=== PATIENT | male | born 1945 | race Caucasian/White ===

== ENCOUNTER 2017-02-08 12:42 | Emergency (ER) | payer MEDICARE, MEDICAID ==
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
[2017-02-08 13:53] LABS: ABSOLUTE BASOPHILS # (AUTO) 0.1 10^3/uL (0.0-0.2); ABSOLUTE EOSINOPHILS # (AUTO) 0.1 10^3/uL (0.0-0.6); ABSOLUTE LYMPHOCYTES (AUTO) 2.2 10^3/uL (0.5-4.7); ABSOLUTE MONOCYTES (AUTO) 0.6 10^3/uL (0.1-1.4); ABSOLUTE NEUT (AUTO) 5.7 10^3/uL (1.7-8.2); BASOPHILS % (AUTO) 1.4 % (0-2); EOSINOPHILS % (AUTO) 1.4 % (0-6); HEMATOCRIT 39.8 % (37.9-51.0); HEMOGLOBIN 13.9 g/dL (13.5-17.0); HGB HCT DIFFERENCE 1.9; MEAN CORPUSCULAR HEMOGLOBIN 30.1 pg (27.0-33.4); MEAN CORPUSCULAR HGB CONC 34.9 g/dL (32.0-36.0); MEAN CORPUSCULAR VOLUME 86 fl (80-97); MONOCYTES % (AUTO) 7.4 % (3-13); RED BLOOD COUNT 4.61 10^6/uL (4.35-5.55); RED CELL DISTRIBUTION WIDTH 14.2 % (11.5-14.0); SEGMENTED NEUTROPHILS % (AUTO) 64.8 % (42-78); WHITE BLOOD COUNT 8.7 10^3/uL (4.0-10.5)
[2017-02-08 14:15] LABS: ALANINE AMINOTRANSFERASE 28 U/L (21-72); ALBUMIN 4.7 g/dL (3.5-5.0); ALKALINE PHOSPHATASE 79 U/L (38-126); ANION GAP 15 (5-19); ASPARTATE AMINO TRANSFERASE 26 U/L (17-59); BILIRUBIN,DIRECT 0.2 mg/dL (0.0-0.4); BILIRUBIN,TOTAL 0.8 mg/dL (0.2-1.3); BLOOD UREA NITROGEN 9 mg/dL (7-20); CALCIUM 9.9 mg/dL (8.4-10.2); CARBON DIOXIDE 25 mmol/L (22-30); CHLORIDE 102 mmol/L (98-107); CREATININE RESULT 1.09 mg/dL (0.52-1.25); GLUCOSE 99 mg/dL (75-110); POTASSIUM 4.1 mmol/L (3.6-5.0); SODIUM 142.2 mmol/L (137-145); TOTAL PROTEIN 7.6 g/dL (6.3-8.2)
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
[2017-02-08 16:35] LABS: PROTHROMBIN TIME 13.2 SEC (11.4-15.4)
[2017-02-08 17:35] LABS: AMORPHOUS SEDIMENT,URINE 3+ /HPF; APPEARANCE,URINE TURBID; BILIRUBIN,URINE MODERATE (NEGATIVE); GLUCOSE, URINE NEGATIVE (NEGATIVE); KETONES,URINE NEGATIVE (NEGATIVE); LEUKOCYTE ESTERASE,URINE NEGATIVE (NEGATIVE); NITRITE,URINE NEGATIVE (NEGATIVE); PROTEIN,URINE NEGATIVE (NEGATIVE); UROBILINOGEN,URINE NEGATIVE mg/dL (<2.0)
[2017-02-08 18:35] VITALS: BP 174/87
== END 2017-02-08 18:38 | disposition home or self-care (01) ==
LOC: ER 12:42
DX: K62.5 Hemorrhage of anus and rectum (principal)
CPT/HCPCS: 36415; 80053; 81001; 82272; 85025; 85610; 99283

== ENCOUNTER 2017-04-05 03:55 | Emergency (ER) | payer MEDICARE, MEDICAID ==
[2017-04-05 05:09] LABS: ABSOLUTE EOSINOPHILS # (AUTO) 0.1 10^3/uL (0.0-0.6); ABSOLUTE LYMPHOCYTES (AUTO) 1.4 10^3/uL (0.5-4.7); ABSOLUTE MONOCYTES (AUTO) 0.8 10^3/uL (0.1-1.4); ABSOLUTE NEUT (AUTO) 4.5 10^3/uL (1.7-8.2); BASOPHILS % (AUTO) 0.6 % (0-2); EOSINOPHILS % (AUTO) 1.2 % (0-6); HEMATOCRIT 40.2 % (37.9-51.0); HEMOGLOBIN 13.3 g/dL (13.5-17.0); HGB HCT DIFFERENCE -0.3; LYMPHOCYTES % (AUTO) 20.7 % (13-45); MEAN CORPUSCULAR HEMOGLOBIN 30.1 pg (27.0-33.4); MEAN CORPUSCULAR HGB CONC 33.2 g/dL (32.0-36.0); MEAN CORPUSCULAR VOLUME 91 fl (80-97); MONOCYTES % (AUTO) 11.7 % (3-13); RED BLOOD COUNT 4.44 10^6/uL (4.35-5.55); RED CELL DISTRIBUTION WIDTH 14.5 % (11.5-14.0); SEGMENTED NEUTROPHILS % (AUTO) 65.8 % (42-78); WHITE BLOOD COUNT 6.8 10^3/uL (4.0-10.5)
[2017-04-05 05:20] LABS: ALANINE AMINOTRANSFERASE 37 U/L (21-72); ALBUMIN 4.5 g/dL (3.5-5.0); ALKALINE PHOSPHATASE 94 U/L (38-126); ANION GAP 13 (5-19); ASPARTATE AMINO TRANSFERASE 35 U/L (17-59); BILIRUBIN,DIRECT 0.3 mg/dL (0.0-0.4); BILIRUBIN,TOTAL 0.8 mg/dL (0.2-1.3); BLOOD UREA NITROGEN 19 mg/dL (7-20); CALCIUM 9.8 mg/dL (8.4-10.2); CARBON DIOXIDE 27 mmol/L (22-30); CHLORIDE 98 mmol/L (98-107); CREATININE RESULT 1.41 mg/dL (0.52-1.25); GLUCOSE 115 mg/dL (75-110); MAGNESIUM 2.5 mg/dL (1.6-2.3); SODIUM 137.9 mmol/L (137-145); TOTAL PROTEIN 7.9 g/dL (6.3-8.2)
[2017-04-05 05:29] LABS: ALCOHOL < 10 mg/dL (NONE DETECTED)
[2017-04-05 07:15] LABS: APPEARANCE,URINE CLEAR; BILIRUBIN,URINE NEGATIVE (NEGATIVE); GLUCOSE, URINE NEGATIVE (NEGATIVE); KETONES,URINE NEGATIVE (NEGATIVE); LEUKOCYTE ESTERASE,URINE NEGATIVE (NEGATIVE); NITRITE,URINE NEGATIVE (NEGATIVE); PROTEIN,URINE NEGATIVE (NEGATIVE); URINE SPECIFIC GRAVITY 1.004; UROBILINOGEN,URINE NEGATIVE mg/dL (<2.0)
[2017-04-05 07:32] LABS: URINE BARBITURATES SCREEN NEGATIVE; URINE METHADONE SCREEN NEGATIVE; URINE OPIATES LOW NEGATIVE; URINE PHENCYCLIDINE SCREEN NEGATIVE
--- NOTE | 2017-04-05 08:32 | RADIOLOGY REPORT (SQ) ---
EXAM DESCRIPTION: CT HEAD WITHOUT COMPLETED DATE/TIME: 04/05/2017 8:23 am REASON FOR STUDY: Altered level of consciousness COMPARISON: 09/25/2016 TECHNIQUE: Axial images acquired through the brain without intravenous contrast. Images reviewed wi th bone, brain and subdural windows. Images stored on PACS. All CT scanners at this facility use dose modulation, iterative reconstruction, and/or weight based d osing when appropriate to reduce radiation dose to as low as reasonably achievable (ALARA). [facility]: Dose Right [facility]: CareDose [facility]: Dose Right [facility]: Teradose 4D [facility]: [employer] RADIATION DOSE: 28.01 mGy. LIMITATIONS: None. FINDINGS: VENTRICLES: Normal size and contour. CEREBRUM: No masses. No hemorrhage. No midline shift. Normal guerra/white matter differentiation. N o evidence for acute infarction. CEREBELLUM: No masses. No hemorrhage. No alteration of density. No evidence for acute infarction. EXTRAAXIAL SPACES: No fluid collections. No masses. ORBITS AND GLOBE: No intra- or extraconal masses. Normal contour of globe without masses. CALVARIUM: No fracture. PARANASAL SINUSES: No fluid or mucosal thickening. SOFT TISSUES: No mass or hematoma. OTHER: No other significant finding. IMPRESSION: No acute intracranial event. TECHNICAL DOCUMENTATION: JOB ID: [id number] Quality ID # [id number]: Final reports with documentation of one or more dose reduction techniques (e.g., Au tomated exposure control, adjustment of the mA and/or kV according to patient size, use of iterative reconstruction technique) 2010 [employer]- All Rights Reserved
--- NOTE | 2017-04-05 08:42 | RADIOLOGY REPORT (SQ) ---
EXAM DESCRIPTION: CHEST PA/LAT COMPLETED DATE/TIME: 04/05/2017 8:33 am REASON FOR STUDY: ams COMPARISON: 09/25/2016 EXAM PARAMETERS: NUMBER OF VIEWS: two views TECHNIQUE: Digital Frontal and Lateral radiographic views of the chest acquired. RADIATION DOSE: NA LIMITATIONS: none FINDINGS: LUNGS AND PLEURA: No opacities, masses or pneumothorax. No pleural effusion. MEDIASTINUM AND HILAR STRUCTURES: No masses or contour abnormalities. HEART AND VASCULAR STRUCTURES: Heart normal size. No evidence for failure. BONES: Stable in appearance with multiple left-sided healed rib fractures. HARDWARE: None in the chest. OTHER: No other significant finding. IMPRESSION: NO SIGNIFICANT RADIOGRAPHIC FINDING IN THE CHEST. TECHNICAL DOCUMENTATION: JOB ID: [id number] [employer]- All Rights Reserved
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
[2017-04-05 12:21] VITALS: BP 167/97
--- NOTE | 2017-04-05 14:31 | EKG REPORT ---
SEVERITY:- NORMAL ECG - SINUS RHYTHM : Confirmed by: Meagan Avendaño 05-Apr-2017 14:30:25
== END 2017-04-05 12:20 | disposition home or self-care (01) ==
LOC: ER 03:55
DX: R41.82 Altered mental status, unspecified (principal); I10 Essential (primary) hypertension; Z79.899 Other long term (current) drug therapy; Z79.891 Long term (current) use of opiate analgesic; Z87.891 Personal history of nicotine dependence; Z85.46 Personal history of malignant neoplasm of prostate
CPT/HCPCS: 36415; 70450; 71020; 80053; 80307; 81001; 83735; 85025; 93005; 93010; 99285

== ENCOUNTER → 2017-05-21 | Outpatient (CLI) | payer MEDICARE, MEDICAID | LOC: OD 13:47 | PROVIDERS: ATTEND Radiology Radiation Oncology | DX: C61 Malignant neoplasm of prostate (principal) | CPT/HCPCS: 36415; 84153 ==

== ENCOUNTER → 2018-02-23 | Outpatient (CLI) | payer MEDICARE, MEDICAID | LOC: OD 13:09 | PROVIDERS: ATTEND Radiology Radiation Oncology | DX: C61 Malignant neoplasm of prostate (principal); R97.20 Elevated prostate specific antigen [PSA] | CPT/HCPCS: 36415; 84153 ==

== ENCOUNTER → 2018-02-23 | Outpatient (CLI) | payer MEDICARE, MEDICAID ==
--- NOTE | 2018-02-23 13:59 | RADIOLOGY REPORT (SQ) ---
EXAM DESCRIPTION: NM WHOLE BODY BONE SCAN COMPLETED DATE/TIME: 02/23/2018 12:23 pm REASON FOR STUDY: PROSTATE CANCER, BONE PAIN C61 MALIGNANT NEOPLASM OF PROSTATE M85.80 OTH DISRD O F BONE DENSITY AND STRUCTURE, UNSPECIFIED COMPARISON: Prior bone scan 04/22/2011, 06/09/2012, 08/15/2014 RADIONUCLIDE AND DOSE: 21.8 millicuries Tc99m HDP. The route of agent administration: Intravenous. ADDITIONAL DRUGS AND DOSES: None. TECHNIQUE: Routine delayed images at 3 hours post radionuclide injection acquired of the bony skelet on including anterior and posterior whole-body projections and additional focused images as needed. LIMITATIONS: None. FINDINGS: BONES: Increased uptake over the thoracic and lumbar spine, bony pelvis, ribs, sternum, cl avicles, calvarium worrisome for metastatic disease. Heavy burden of disease at L1. Spotty increased uptake at the shoulders, hips knees and ankles likely from osteoarthritis. KIDNEYS: Symmetric excretion without obstruction. OTHER: No other significant finding. IMPRESSION: Multiple skeletal lesions worrisome for metastatic disease COMMENT: Quality measure 147: Current bone scan is compared with any available plain radiographs, p rior bone scans, and CT/MRI. TECHNICAL DOCUMENTATION: JOB ID: [id number] [employer]- All Rights Reserved Reading location - IP/workstation name: [facility]
== END ==
LOC: RAD 08:12
PROVIDERS: ATTEND Radiology Radiation Oncology
DX: C61 Malignant neoplasm of prostate (principal); M85.80 Other specified disorders of bone density and structure, unspecified site
CPT/HCPCS: 78306; A9561; Q9969

== ENCOUNTER → 2018-03-03 | Outpatient (CLI) | payer MEDICARE, MEDICAID ==
--- NOTE | 2018-03-03 15:35 | RADIOLOGY REPORT (SQ) ---
EXAM DESCRIPTION: CT PELVIS WITHOUT COMPLETED DATE/TIME: 03/03/2018 3:08 pm REASON FOR STUDY: C79.51 SECONDARY MALIGNANT NEOPLASM OF BONE C79.51 SECONDARY MALIGNANT NEOPLASM O F BONE COMPARISON: Whole-body bone scan 02/23/2018 CT abdomen pelvis 01/09/2016 TECHNIQUE: CT scan of the pelvis performed without intravenous or oral contrast. Images reviewed wi th soft tissue and bone windows. Reconstructed coronal and sagittal MPR images reviewed. All images stored on PACS. All CT scanners at this facility use dose modulation, iterative reconstruction, and/or weight based d osing when appropriate to reduce radiation dose to as low as reasonably achievable (ALARA). [facility]: Dose Right [facility]: CareDose [facility]: Dose Right [facility]: Teradose 4D [facility]: [employer] RADIATION DOSE: CT Rad equipment meets quality standard of care and radiation dose reduction techniq ues were employed. CTDIvol: 8.5 mGy. DLP: 281 mGy-cm. mGy. LIMITATIONS: None. FINDINGS: Since the CT exam on 01/09/2016, patient has developed widespread osseous metastatic lesion s throughout the visualized lower lumbar spine and bony pelvis. No definite proximal femur bony meta static lesions. No pelvic fracture. Hip joints are unremarkable. SI joints are unremarkable. No lower lumbar compression deformity. Soft tissue windows demonstrate no para-aortic or pelvic for inguinal adenopathy. Patient is post prostatectomy. Pelvic bowel loops are unremarkable. No free fluid. IMPRESSION: Diffuse bony metastatic disease throughout the pelvis without pathologic fracture. TECHNICAL DOCUMENTATION: JOB ID: [id number] Quality ID # [id number]: Final reports with documentation of one or more dose reduction techniques (e.g., Au tomated exposure control, adjustment of the mA and/or kV according to patient size, use of iterative reconstruction technique) 2010 [employer]- All Rights Reserved Reading location - IP/workstation name: [email or web address]
== END ==
LOC: RAD 14:54
PROVIDERS: ATTEND Radiology Radiation Oncology
DX: C79.51 Secondary malignant neoplasm of bone (principal); C61 Malignant neoplasm of prostate
CPT/HCPCS: 72192; 82565

== ENCOUNTER 2018-05-19 14:44 | Emergency (ER) | payer MEDICARE, MEDICAID ==
[2018-05-19] MEDS ORDERED: NORMAL SALINE 1000 ML 1,000 ML IV ONE (15:12)
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
[2018-05-19 15:47] LABS: ABSOLUTE EOSINOPHILS # (AUTO) 0.1 10^3/uL (0.0-0.6); ABSOLUTE LYMPHOCYTES (AUTO) 2.3 10^3/uL (0.5-4.7); ABSOLUTE MONOCYTES (AUTO) 0.6 10^3/uL (0.1-1.4); ABSOLUTE NEUT (AUTO) 5.5 10^3/uL (1.7-8.2); BASOPHILS % (AUTO) 0.5 % (0-2); EOSINOPHILS % (AUTO) 1.7 % (0-6); HEMATOCRIT 37.1 % (37.9-51.0); HEMOGLOBIN 12.7 g/dL (13.5-17.0); LYMPHOCYTES % (AUTO) 27.2 % (13-45); MEAN CORPUSCULAR HEMOGLOBIN 30.8 pg (27.0-33.4); MEAN CORPUSCULAR HGB CONC 34.3 g/dL (32.0-36.0); MEAN CORPUSCULAR VOLUME 90 fl (80-97); MONOCYTES % (AUTO) 6.5 % (3-13); PLATELET COUNT 254 10^3/uL (150-450); RED BLOOD COUNT 4.13 10^6/uL (4.35-5.55); RED CELL DISTRIBUTION WIDTH 14.3 % (11.5-14.0); SEGMENTED NEUTROPHILS % (AUTO) 64.1 % (42-78); TOTAL CELLS COUNTED % (AUTO) 100 %; WHITE BLOOD COUNT 8.6 10^3/uL (4.0-10.5)
[2018-05-19 16:07] LABS: ALANINE AMINOTRANSFERASE 31 U/L (21-72); ALBUMIN 4.3 g/dL (3.5-5.0); ALKALINE PHOSPHATASE 281 U/L (38-126); ANION GAP 13 (5-19); ASPARTATE AMINO TRANSFERASE 37 U/L (17-59); BILIRUBIN,DIRECT 0.3 mg/dL (0.0-0.4); BILIRUBIN,TOTAL 0.6 mg/dL (0.2-1.3); BLOOD UREA NITROGEN 16 mg/dL (7-20); CALCIUM 9.4 mg/dL (8.4-10.2); CARBON DIOXIDE 24 mmol/L (22-30); CHLORIDE 103 mmol/L (98-107); GLUCOSE 101 mg/dL (75-110); LIPASE 21.8 U/L (23-300); POTASSIUM 4.7 mmol/L (3.6-5.0); TOTAL PROTEIN 7.2 g/dL (6.3-8.2)
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
--- NOTE | 2018-05-19 17:32 | RADIOLOGY REPORT (SQ) ---
EXAM DESCRIPTION: CT ABD/PELVIS WITH IV ONLY COMPLETED DATE/TIME: 05/19/2018 4:46 pm REASON FOR STUDY: diffuse abd pain, hx cancer COMPARISON: Pelvic CT scan dated 03/03/2018 TECHNIQUE: CT scan of the abdomen and pelvis performed using helical scanning technique with dynamic intravenous contrast injection. No oral contrast. Images reviewed with lung, soft tissue, and bone windows. Reconstructed coronal and sagittal MPR images reviewed. Delayed images for evaluation of the urinary system also acquired. All images stored on PACS. All CT scanners at this facility use dose modulation, iterative reconstruction, and/or weight based d osing when appropriate to reduce radiation dose to as low as reasonably achievable (ALARA). [facility]: Dose Right [facility]: CareDose [facility]: Dose Right [facility]: Teradose 4D [facility]: [employer] CONTRAST TYPE AND DOSE: contrast/concentration: Isovue 300.00 mg/ml; Total Contrast Delivered: 98.0 ml; Total Saline Delivered: 72.0 ml RENAL FUNCTION: Creatinine 1.88 RADIATION DOSE: CT Rad equipment meets quality standard of care and radiation dose reduction techniq ues were employed. CTDIvol: 11.0 - 15.8 mGy. DLP: 1498 mGy-cm.. LIMITATIONS: None. FINDINGS: LOWER CHEST: Ill-defined bibasilar densities are identified most consistent with atelectat ic changes. Small nodular densities are identified in the retrocrural region suspicious for adenopat hy. LIVER: Normal size. No masses. No dilated ducts. SPLEEN: Normal size. No focal lesions. PANCREAS: No masses. No significant calcifications. No adjacent inflammation or peripancreatic fluid collections. Pancreatic duct not dilated. GALLBLADDER: No identified stones by CT criteria. No inflammatory changes to suggest cholecystitis. ADRENAL GLANDS: No significant masses or asymmetry. RIGHT KIDNEY AND URETER: No solid masses. No significant calcifications. No hydronephrosis or hyd roureter. LEFT KIDNEY AND URETER: No solid masses. No significant calcifications. No hydronephrosis or hydr oureter. AORTA AND VESSELS: No aneurysm. No dissection. Renal arteries, SMA, celiac without stenosis. RETROPERITONEUM: No retroperitoneal adenopathy, hemorrhage or masses. BOWEL AND PERITONEAL CAVITY: No masses or inflammatory changes. No free fluid or peritoneal masses. APPENDIX: Normal. PELVIS: No mass. No free fluid. Normal bladder. Patient is status post prostatectomy. ABDOMINAL WALL: No masses. No hernias. BONES: Diffuse skeletal sclerotic metastatic disease is identified. OTHER: No other significant finding. IMPRESSION: Diffuse skeletal sclerotic metastatic disease is identified. Nodular densities are iden tified in the retrocrural region suspicious for adenopathy. Status post prostatectomy. Other findin gs as noted above. TECHNICAL DOCUMENTATION: JOB ID: [id number] Quality ID # [id number]: Final reports with documentation of one or more dose reduction techniques (e.g., Au tomated exposure control, adjustment of the mA and/or kV according to patient size, use of iterative reconstruction technique) 2010 [employer]- All Rights Reserved Reading location - IP/workstation name: [email or web address]
[2018-05-19 17:54] VITALS: BP 135/71
== END 2018-05-19 17:54 | disposition home or self-care (01) ==
LOC: ER 14:44
DX: I95.9 Hypotension, unspecified (principal); N17.9 Acute kidney failure, unspecified; M15.9 Polyosteoarthritis, unspecified; C61 Malignant neoplasm of prostate; C79.51 Secondary malignant neoplasm of bone; Z79.899 Other long term (current) drug therapy; I10 Essential (primary) hypertension; R10.9 Unspecified abdominal pain
CPT/HCPCS: 99285; 96360; 96361; 36415; 87040; 83690; 85025; 80053; 83605; 74177; J7030

== ENCOUNTER → 2018-11-02 | Outpatient (CLI) | payer MEDICARE, MEDICAID ==
--- NOTE | 2018-11-02 09:19 | RADIOLOGY REPORT (SQ) ---
EXAM DESCRIPTION: CT CHEST WITH; CT ABD/PELVIS WITH IV ONLY COMPLETED DATE/TIME: 11/02/2018 8:57 am REASON FOR STUDY: PROSTATE CA C61 MALIGNANT NEOPLASM OF PROSTATE COMPARISON: Prior abdominopelvic study 05/19/2018. CONTRAST TYPE AND DOSE: contrast/concentration: Isovue 350.00 mg/ml; Total Contrast Delivered: 100.0 ml; Total Saline Delivered: 72.0 ml RENAL FUNCTION: GFR > 60. TECHNIQUE: CT scan of the chest performed using helical scanning technique with dynamic intravenous contrast injection. Images reviewed with lung, soft tissue and bone windows. Reconstructed coronal a nd sagittal MPR images reviewed. All images stored on PACS. CT scan of the abdomen and pelvis performed with intravenous and with oral contrastusing helical scan rodolfo technique with dynamic intravenous contrast injection. Images reviewed with lung, soft tissue a nd bone windows. Reconstructed coronal and sagittal MPR images reviewed. Delayed images for evaluat ion of the urinary system also acquired and evaluated. All images stored on PACS. All CT scanners at this facility use dose modulation, iterative reconstruction, and/or weight based d osing when appropriate to reduce radiation dose to as low as reasonably achievable (ALARA). [facility]: Dose Right [facility]: CareDose [facility]: Dose Right [facility]: Teradose 4D [facility]: [employer] RADIATION DOSE: CT Rad equipment meets quality standard of care and radiation dose reduction techniq ues were employed. CTDIvol: 8.0 - 8.8 mGy. DLP: 1259 mGy-cm. . LIMITATIONS: None. FINDINGS: CHEST: LUNGS AND PLEURA: Mild nodular apical pleural scar. Right upper lobe subpleural nodule, 4 mm. Right posterior subpleural lower lobe nodule just at 4 mm. HILAR AND MEDIASTINAL STRUCTURES: Shotty nodes. Includes lower mediastinal paraesophageal subcentime ter nodes. HEART AND VASCULAR STRUCTURES: No pericardial effusion, aortic aneurysm or dissection. Moderate parish nary calcification. No pulmonary embolus. HARDWARE: None. THYROID AND OTHER SOFT TISSUES: No masses. No adenopathy. BONES: Widespread sclerotic osseous metastatic disease. OTHER: No other significant finding. ABDOMEN AND PELVIS: LIVER: Normal size. No masses. No dilated ducts. SPLEEN: Normal size. No focal lesions. PANCREAS: Atrophy. Otherwise unremarkable. GALLBLADDER: Mildly distended. No stones kendall dilatation. ADRENAL GLANDS: No significant masses or asymmetry. RIGHT KIDNEY AND URETER: No solid masses. No significant calcification. No hydronephrosis or hydroure ter. LEFT KIDNEY AND URETER: No solid masses. No significant calcification. No hydronephrosis or hydrouret er. AORTA AND VESSELS: No aneurysm. No dissection. Renal arteries, SMA, celiac without stenosis. RETROPERITONEUM: No retroperitoneal adenopathy, hemorrhage or masses. BOWEL AND PERITONEAL CAVITY: No masses or inflammatory changes. No free fluid or peritoneal masses. APPENDIX: Normal. ABDOMINAL WALL: No masses. No hernias. PELVIS: No pelvic mass or adenopathy detected. Bladder normal. BONES: Widespread sclerotic osseous metastatic disease. OTHER: No other significant finding. IMPRESSION: 1. Widespread osseous metastatic disease diffusely. 2. Several tiny 4 mm or less pulmo nary nodules. FLEISCHNER CRITERIA FOR FOLLOW-UP OF PULMONARY NODULES Incidentally detected new nodules in persons 35 or older. HIGH RISK: History of smoking or other known risk factors. <6mm multiple solid nodules: LOW RISK: no routine followup. HIGH RISK: optional CT [address] OF THE ABDOMEN AND PELVIS WITH ORAL AND INTRAVENOUS CONTRAST. TECHNICAL DOCUMENTATION: JOB ID: [id number] Quality ID # 436: Final reports with documentation of one or more dose reduction techniques (e.g., Au tomated exposure control, adjustment of the mA and/or kV according to patient size, use of iterative reconstruction technique) 2010 [employer]- All Rights Reserved Reading location - IP/workstation name: [email or web address]
--- NOTE | 2018-11-02 13:26 | RADIOLOGY REPORT (SQ) ---
EXAM DESCRIPTION: NM WHOLE BODY BONE SCAN COMPLETED DATE/TIME: 11/02/2018 12:03 pm REASON FOR STUDY: PROSTATE CA C61 MALIGNANT NEOPLASM OF PROSTATE COMPARISON: 02/23/2018 RADIONUCLIDE AND DOSE: 21.2 millicuries Tc99m HDP. The route of agent administration: Intravenous. ADDITIONAL DRUGS AND DOSES: None. TECHNIQUE: Routine delayed images at 3 hour post radionuclide injection acquired of the bony skeleto n including anterior and posterior whole-body projections and additional focused images as needed. LIMITATIONS: None. FINDINGS: BONES: Multiple areas of increased uptake axial skeleton, ribs and calvarium. No new area s of increased uptake. KIDNEYS: Symmetric excretion without obstruction. OTHER: No other significant finding. IMPRESSION: Stable bone metastasis. COMMENT: Quality measure 147: Current bone scan is compared with any available plain radiographs, p rior bone scans, and CT/MRI. TECHNICAL DOCUMENTATION: JOB ID: [id number] [employer]- All Rights Reserved Reading location - IP/workstation name: [email or web address]
== END ==
LOC: RAD 08:20
PROVIDERS: ATTEND Internal Medicine
DX: C61 Malignant neoplasm of prostate (principal)
CPT/HCPCS: 82565; 78306; 71260; 74177; A9561; Q9969

== ENCOUNTER → 2019-06-27 | Outpatient (CLI) | payer MEDICARE, MEDICAID ==
--- NOTE | 2019-06-27 11:33 | RADIOLOGY REPORT (SQ) ---
EXAM DESCRIPTION: CT CHEST WITH; CT ABD/PELVIS WITH IV ONLY COMPLETED DATE/TIME: 06/27/2019 9:51 am REASON FOR STUDY: C61 MALIGNANT NEOPLASM OF PROSTATE C61 MALIGNANT NEOPLASM OF PROSTATE CONTRAST TYPE AND DOSE: contrast/concentration: Isovue 350.00 mg/ml; Total Contrast Delivered: 100.0 ml; Total Saline Delivered: 65.0 ml RENAL FUNCTION: Creatinine 1.1 COMPARISON: 11/02/2018 TECHNIQUE: CT scan of the chest performed using helical scanning technique with dynamic intravenous contrast injection. Images reviewed with lung, soft tissue and bone windows. Reconstructed coronal a nd sagittal MPR images reviewed. All images stored on PACS. All CT scanners at this facility use dose modulation, iterative reconstruction, and/or weight based d osing when appropriate to reduce radiation dose to as low as reasonably achievable (ALARA). [facility]: Dose Right [facility]: CareDose [facility]: Dose Right [facility]: Teradose 4D [facility]: [employer] RADIATION DOSE: CT Rad equipment meets quality standard of care and radiation dose reduction techniq ues were employed. CTDIvol: 9.3 - 10.4 mGy. DLP: 1595 mGy-cm. . LIMITATIONS: None. FINDINGS: AXILLAE: Stable 1.3 cm right axillary lymph node. Stable 9.1 mm left axillary lymph node. CHEST WALL: No masses. No subcutaneous air. LUNGS: Again noted is a small right upper lobe pulmonary nodule adjacent to the fissure measuring austin roximately 4 mm. There is a 2nd approximately 4 mm nodule in the right lower lobe which is subpleura l in location. There is a calcified granuloma in the left upper lobe. PLEURA: Pleural thickening bilaterally. THYROID: No masses or significant asymmetry. HILAR AND MEDIASTINAL STRUCTURES: No identified masses or abnormal nodes. AORTA AND GREAT VESSELS: No aneurysm. No dissection. PULMONARY ARTERIES: No identified pulmonary emboli. Study not optimized for the pulmonary arteries. HEART: No pericardial effusion. HARDWARE AND LIFELINES: None. BONES: Widespread bony metastases are again noted. OTHER: No other significant finding. IMPRESSION: 1. Stable 4 mm nodules 1 in the right upper lobe 1 in the right lung base. 2. Widespread bony metastasis. COMPARISON: None. RADIATION DOSE: CT Rad equipment meets quality standard of care and radiation dose reduction techniq ues were employed. CTDIvol: 9.3 - 10.4 mGy. DLP: 1595 mGy-cm. mGy. TECHNIQUE: CT scan of the abdomen and pelvis performed with intravenous and oral contrast using kareem nicolas scanning technique with dynamic intravenous contrast injection. Images reviewed with lung, soft tissue and bone windows. Reconstructed coronal and sagittal MPR images reviewed. Delayed images for evaluation of the urinary system also acquired and evaluated. All images stored on PACS. All CT scanners at this facility use dose modulation, iterative reconstruction, and/or weight based d osing when appropriate to reduce radiation dose to as low as reasonably achievable (ALARA). [facility]: Dose Right [facility]: [employer] [facility]: Dose Right [facility]: Teradose 4D [facility]: [employer] FINDINGS: LIVER: Normal size. No masses. No dilated ducts. SPLEEN: Normal size. No focal lesions. PANCREAS: No masses. No significant calcifications. No adjacent inflammation or peripancreatic flui d collections. Pancreatic duct not dilated. GALLBLADDER: No identified stones by CT criteria. No inflammatory changes to suggest cholecystitis. ADRENAL GLANDS: No significant masses or asymmetry. RIGHT KIDNEY AND URETER: No solid masses. No significant calcifications. No hydronephrosis or hyd roureter. LEFT KIDNEY AND URETER: No solid masses. No significant calcifications. No hydronephrosis or hydr oureter. AORTA AND VESSELS: No aneurysm or dissection. There is calcified plaque at the origins of both renal arteries. SMA and celiac axis are widely patent. No significant renal artery stenosis despite the calcified plaque. RETROPERITONEUM: No pathologic retroperitoneal adenopathy. LARGE AND SMALL BOWEL: No dilatation. No masses. No wall thickening. APPENDIX: Normal. ABDOMINAL WALL: No hernia or masses. PERITONEAL CAVITY: No free air. No free fluid. No peritoneal implants or masses. PELVIS: No mass or free fluid. Normal bladder. BONES: Bony metastases are again noted. OTHER: No other significant finding. IMPRESSION: Widespread bony metastasis. No other significant findings in the abdomen or pelvis. TECHNICAL DOCUMENTATION: JOB ID: [id number] Quality ID # 436: Final reports with documentation of one or more dose reduction techniques (e.g., Au tomated exposure control, adjustment of the mA and/or kV according to patient size, use of iterative reconstruction technique) 2010 [email or web address] All Rights Reserved Reading location - IP/workstation name: [email or web address]
--- NOTE | 2019-06-27 13:02 | RADIOLOGY REPORT (SQ) ---
EXAM DESCRIPTION: NM WHOLE BODY BONE SCAN COMPLETED DATE/TIME: 06/27/2019 12:44 pm REASON FOR STUDY: C61 MALIGNANT NEOPLASM OF PROSTATE C61 MALIGNANT NEOPLASM OF PROSTATE COMPARISON: 11/02/2018 RADIONUCLIDE AND DOSE: 20 millicuries Tc99m HDP. The route of agent administration: Intravenous. ADDITIONAL DRUGS AND DOSES: None. TECHNIQUE: Routine delayed images at 3 hours post radionuclide injection acquired of the bony skelet on including anterior and posterior whole-body projections and additional focused images as needed. LIMITATIONS: None. FINDINGS: BONES: Extensive metastatic disease is seen in the spine, ribs, sacrum, and right coracoid process. The findings represent increase in metastatic disease. KIDNEYS: Symmetric excretion without obstruction. OTHER: No other significant finding. IMPRESSION: Metastatic disease to bone has increased since the prior study. COMMENT: Quality measure 147: Current bone scan is compared with any available plain radiographs, p rior bone scans, and CT/MRI. TECHNICAL DOCUMENTATION: JOB ID: [id number] [employer]- All Rights Reserved Reading location - IP/workstation name: [email or web address]
== END ==
LOC: RAD 08:49
PROVIDERS: ATTEND Internal Medicine
DX: C61 Malignant neoplasm of prostate (principal); C79.51 Secondary malignant neoplasm of bone; R91.8 Other nonspecific abnormal finding of lung field
CPT/HCPCS: 82565; 78306; 71260; 74177; A9561; Q9969

== ENCOUNTER 2019-08-02 21:09 | Inpatient (IN) | payer MEDICARE, MEDICAID ==
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
[2019-08-02 22:17] LABS: ABSOLUTE BASOPHILS # (AUTO) 0.1 10^3/uL (0.0-0.2); ABSOLUTE LYMPHOCYTES (AUTO) 1.5 10^3/uL (0.5-4.7); ABSOLUTE MONOCYTES (AUTO) 0.8 10^3/uL (0.1-1.4); ABSOLUTE NEUT (AUTO) 9.4 10^3/uL (1.7-8.2); BASOPHILS % (AUTO) 0.5 % (0-2); EOSINOPHILS % (AUTO) 0.2 % (0-6); HEMOGLOBIN 12.5 g/dL (13.5-17.0); LYMPHOCYTES % (AUTO) 12.8 % (13-45); MEAN CORPUSCULAR HEMOGLOBIN 30.4 pg (27.0-33.4); MEAN CORPUSCULAR HGB CONC 35.6 g/dL (32.0-36.0); MEAN CORPUSCULAR VOLUME 86 fl (80-97); MONOCYTES % (AUTO) 6.6 % (3-13); PLATELET COUNT 290 10^3/uL (150-450); RED BLOOD COUNT 4.09 10^6/uL (4.35-5.55); RED CELL DISTRIBUTION WIDTH 13.5 % (11.5-14.0); SEGMENTED NEUTROPHILS % (AUTO) 79.9 % (42-78); TOTAL CELLS COUNTED % (AUTO) 100 %; WHITE BLOOD COUNT 11.8 10^3/uL (4.0-10.5)
[2019-08-02 22:26] LABS: INTERNATIONAL RATION (INR) 1.12; PROTHROMBIN TIME 14.5 SEC (11.4-15.4)
[2019-08-02 22:31] LABS: ALBUMIN 4.3 g/dL (3.5-5.0); ALKALINE PHOSPHATASE 139 U/L (38-126); ANION GAP 16 (5-19); ASPARTATE AMINO TRANSFERASE 29 U/L (17-59); BILIRUBIN,DIRECT 0.2 mg/dL (0.0-0.4); BILIRUBIN,TOTAL 0.8 mg/dL (0.2-1.3); BLOOD UREA NITROGEN 16 mg/dL (7-20); CALCIUM 9.1 mg/dL (8.4-10.2); CARBON DIOXIDE 22 mmol/L (22-30); CHLORIDE 84 mmol/L (98-107); GLUCOSE 135 mg/dL (75-110); POTASSIUM 3.4 mmol/L (3.6-5.0); TOTAL PROTEIN 7.1 g/dL (6.3-8.2)
[2019-08-02 22:49] LABS: VENOUS BLOOD BASE EXCESS 0.7 mmol/L; VENOUS BLOOD HCO3 26.9 mmol/L (20-32); VENOUS BLOOD PCO2 49.4 mmHg (35-63); VENOUS BLOOD PH 7.35 (7.30-7.42)
--- NOTE | 2019-08-03 00:21 | RADIOLOGY REPORT (SQ) ---
EXAM DESCRIPTION: CT HEAD WITHOUT IV CONTRAST COMPLETED DATE/TME: 08/02/2019 22:36 CLINICAL HISTORY: Fall/pain COMPARISON: 04/05/2017 TECHNIQUE: Axial CT of the head obtained from the skull apex to the skull base without contrast. Motion artifact. FINDINGS: No acute intracranial hemorrhage identified. No mass effect, shift of the midline, abnormal extra-axial fluid collection or CT evidence of acute ischemic change identified. The ventricular system and sulcal spaces are age appropriate. Scattered areas of hypodensity throughout the supratentorial white matter are nonspecific and may be related to chronic small vessel ischemic change. Enlargement of the pituitary gland measuring 1.4 x 1.8 x 5.3 cm The visualized paranasal sinuses and the mastoids are clear. No skull fracture identified. Visualized orbits and globes are unremarkable. Atherosclerotic calcification of the intracranial internal carotid arteries. DLP: 2127 mGy-cm IMPRESSION: 1. No acute intracranial abnormality by CT criteria. 2. Enlargement of the pituitary gland. If not previously performed, MRI of the brain with pituitary protocol would be recommended. This exam was performed according to our departmental dose-optimization program, which includes automated exposure control, adjustment of the mA and/or kV according to patient size and/or use of iterative reconstruction technique.
[2019-08-03] MEDS ORDERED: MORPHINE SULFATE 10 MG/ML INJ IV ONE ×2 (01:01→02:18)
[2019-08-03] MEDS ORDERED: NORMAL SALINE 1000 ML 1,000 ML IV ONE (02:49)
[2019-08-03 05:09] LABS: ANION GAP 13 (5-19); BLOOD UREA NITROGEN 14 mg/dL (7-20); CALCIUM 9.4 mg/dL (8.4-10.2); CARBON DIOXIDE 24 mmol/L (22-30); CHLORIDE 87 mmol/L (98-107); GLUCOSE 106 mg/dL (75-110); POTASSIUM 3.5 mmol/L (3.6-5.0)
--- NOTE | 2019-08-03 09:37 | ER Document Report ---
Doctor's Note Notes: 08/03/19 09:36 Patient signed out to me by Dr. Jenkins, who presented with questionable seizure, hyponatremia. Extensive work-up undertaken is unremarkable with the exception of a small sella turcica mass. Originally patient and placed in for transfer for further evaluation. However, spoke with the patient's primary care doctor who feels he can be adequately managed here in [place] transfer later if needed. Patient is alert but confused over his baseline. Will be admitted, sodium has improved from 121 123, continues to have gentle judicious sodium replacement.
[2019-08-03] MEDS ORDERED: NORMAL SALINE 1000 ML 1,000 ML IV PRN (09:58)
[2019-08-03 11:19] LABS: INTERNATIONAL RATION (INR) 1.09; PROTHROMBIN TIME 14.1 SEC (11.4-15.4)
[2019-08-03 11:20] LABS: PARTIAL THROMBOPLASTIN TIME 30.3 SEC (23.5-35.8)
[2019-08-03 11:45] LABS: ANION GAP 11 (5-19); BLOOD UREA NITROGEN 11 mg/dL (7-20); CALCIUM 9.3 mg/dL (8.4-10.2); CARBON DIOXIDE 25 mmol/L (22-30); CHLORIDE 88 mmol/L (98-107); CREATINE KINASE 752 U/L (55-170); GLUCOSE 114 mg/dL (75-110); POTASSIUM 3.2 mmol/L (3.6-5.0)
--- NOTE | 2019-08-03 11:51 | RADIOLOGY REPORT (SQ) ---
EXAM DESCRIPTION: CHEST SINGLE VIEW COMPLETED DATE/TIME: 08/03/2019 10:32 am REASON FOR STUDY: altered mental status COMPARISON: CT chest 06/27/2019, 11/02/2018 Two-view chest 04/05/2017 EXAM PARAMETERS: NUMBER OF VIEWS: One view. TECHNIQUE: Single frontal radiographic view of the chest acquired. RADIATION DOSE: NA LIMITATIONS: None. FINDINGS: LUNGS AND PLEURA: Minimal right basilar airspace disease just above the hemidiaphragm. Le ft lung clear. No pleural effusions. No pneumothorax. MEDIASTINUM AND HILAR STRUCTURES: No masses. Contour normal. HEART AND VASCULAR STRUCTURES: Heart normal in size. Normal vasculature. BONES: Old healed left posterior rib fractures HARDWARE: None in the chest. OTHER: No other significant finding. IMPRESSION: Minimal right basilar atelectasis TECHNICAL DOCUMENTATION: JOB ID: [id number] [employer]- All Rights Reserved Reading location - IP/workstation name: [email or web address]
[2019-08-03 11:53] LABS: CREATINE KINASE MB 4.67 ng/mL (<4.55); TROPONIN I 0.013 ng/mL
[2019-08-03 11:58] LABS: FREE T4 (FREE THYROXINE) 1.17 ng/dL (0.78-2.19)
[2019-08-03 12:11] LABS: THYROID STIMULATING HORMONE 0.63 uIU/mL (0.47-4.68)
[2019-08-03 12:14] LABS: ARTERIAL BLOOD BASE EXCESS -1.4 mmol/L; ARTERIAL BLOOD H2CO3 1.04 mmol/L (1.05-1.35); ARTERIAL BLOOD HCO3 22.3 mmol/L (20-24); ARTERIAL BLOOD O2 SATURATION 97.3 % (94-98); ARTERIAL BLOOD PCO2 34.4 mmHg (35-45); ARTERIAL BLOOD PH 7.43 (7.35-7.45); ARTERIAL BLOOD PO2 91.5 mmHg (80-100); ARTERIAL BLOOD TOTAL CO2 23.4 mmol/L (23-27)
[2019-08-03 12:15] LABS: ARTERIAL BLOOD FIO2 2L
[2019-08-03] MEDS ORDERED: ONDANSETRON HCL INJ/PF 4 MG/2 ML SDV IV PRN (13:13)
[2019-08-03] MEDS: OXYCODONE HCL IR 5 MG TABLET PO PRN ×2 (13:52→19:58)
[2019-08-03] MEDS: HEPARIN SOD (PORCINE) 5,000 UNIT/ML 1 ML VIAL SUBCUT SCH ×3 (13:56→22:54)
[2019-08-03 18:06] LABS: CREATINE KINASE MB 3.91 ng/mL (<4.55); TROPONIN I 0.014 ng/mL
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
--- NOTE | 2019-08-03 21:50 | EKG REPORT ---
SEVERITY:- BORDERLINE ECG - SINUS RHYTHM BORDERLINE T WAVE ABNORMALITIES : Confirmed by: Armida Jacobson MD 03-Aug-2019 21:49:10
--- NOTE | 2019-08-03 21:50 | EKG REPORT ---
SEVERITY:- BORDERLINE ECG - SINUS RHYTHM BORDERLINE T WAVE ABNORMALITIES : Confirmed by: Armida Jacobson MD 03-Aug-2019 21:49:04
--- NOTE | 2019-08-03 22:42 | RADIOLOGY REPORT (SQ) ---
EXAM DESCRIPTION: MR BRAIN WITHOUT THEN WITH IV CONTRAST COMPLETED DATE/TME: 08/03/2019 00:00 CLINICAL HISTORY: 74 years, Male, altered mental status ,stage 4 prostate CA,Ab CT COMPARISON: CT 08/03/2019, MRI 02/01/2015 TECHNIQUE: [id number] Images stored on PACS. LIMITATIONS: None. FINDINGS: The globes are intact. Minimal polyp of the right maxillary sinus. Trace of fluid in the mastoid air cells. Normal flow void in visualized intracranial vessels. The visualized cranial nerve complex these are unremarkable. There is no intra or extra-axial hemorrhage. Diffusion-weighted images show no evidence for acute infarct. Mild age-appropriate atrophy. Multiple foci of increased FLAIR/T2 white matter signal in the periventricular and subcortical regions consistent with sequelae of small vessel ischemic change. No enhancing abnormality within the brain. However, redemonstrated is a heterogeneously enhancing mass centered within the pituitary measuring approximately 1.8 cm craniocaudad by 1.2 cm AP by 1.3 cm transverse. This extends slightly to the left of midline with displacement of the infundibulum to the right and mass effect on the optic chiasm. This was also described and seen on the prior 2014 MRI. IMPRESSION: No acute intracranial abnormality. Atrophy with small vessel ischemic change. Heterogeneously enhancing sellar based mass inseparable from the pituitary likely reflecting pituitary adenoma/macroadenoma. There is associated mass effect as above. Compared with the 2015 MRI, there does appear to be slight interval enlargement, given differences in technique copyright 2011 [employer]- All Rights Reserved
[2019-08-03 23:56] LABS: CREATINE KINASE MB 3.12 ng/mL (<4.55); TROPONIN I 0.013 ng/mL
[2019-08-04] MEDS ORDERED: OXYCODONE HCL IR 5 MG TABLET PO SCH
[2019-08-04 05:54] LABS: ABSOLUTE BASOPHILS # (AUTO) 0.1 10^3/uL (0.0-0.2); ABSOLUTE EOSINOPHILS # (AUTO) 0.1 10^3/uL (0.0-0.6); ABSOLUTE LYMPHOCYTES (AUTO) 1.8 10^3/uL (0.5-4.7); ABSOLUTE NEUT (AUTO) 5.8 10^3/uL (1.7-8.2); BASOPHILS % (AUTO) 1.4 % (0-2); EOSINOPHILS % (AUTO) 1.1 % (0-6); HEMATOCRIT 32.6 % (37.9-51.0); HEMOGLOBIN 11.6 g/dL (13.5-17.0); LYMPHOCYTES % (AUTO) 20.6 % (13-45); MEAN CORPUSCULAR HEMOGLOBIN 30.2 pg (27.0-33.4); MEAN CORPUSCULAR HGB CONC 35.6 g/dL (32.0-36.0); MEAN CORPUSCULAR VOLUME 85 fl (80-97); MONOCYTES % (AUTO) 11.4 % (3-13); PLATELET COUNT 272 10^3/uL (150-450); RED BLOOD COUNT 3.84 10^6/uL (4.35-5.55); RED CELL DISTRIBUTION WIDTH 13.7 % (11.5-14.0); SEGMENTED NEUTROPHILS % (AUTO) 65.5 % (42-78); TOTAL CELLS COUNTED % (AUTO) 100 %; WHITE BLOOD COUNT 8.9 10^3/uL (4.0-10.5)
[2019-08-04 06:01] LABS: ALBUMIN 3.8 g/dL (3.5-5.0); ALKALINE PHOSPHATASE 125 U/L (38-126); ASPARTATE AMINO TRANSFERASE 31 U/L (17-59); BILIRUBIN,DIRECT 0.1 mg/dL (0.0-0.4); BILIRUBIN,TOTAL 0.8 mg/dL (0.2-1.3); CHOLESTEROL 135.13 mg/dL (0-200); TOTAL PROTEIN 7.2 g/dL (6.3-8.2); TRIGLYCERIDES 76 mg/dL (<150)
[2019-08-04 06:12] LABS: DIRECT LDL 79 mg/dL (<100)
[2019-08-04] MEDS: HEPARIN SOD (PORCINE) 5,000 UNIT/ML 1 ML VIAL SUBCUT SCH ×3 (06:37→22:14)
[2019-08-04] MEDS ORDERED: INFLUENZA QUAD (6MOS+) 2019-20 VAC 0.5 ML SYR IM ONE (08:00)
[2019-08-04 09:22] LABS: FREE T4 (FREE THYROXINE) 1.03 ng/dL (0.78-2.19)
[2019-08-04 09:36] LABS: THYROID STIMULATING HORMONE 1.64 uIU/mL (0.47-4.68)
[2019-08-04] MEDS: DULOXETINE HCL 30 MG CAPSULE.DR PO SCH (10:13)
[2019-08-04] MEDS: LOSARTAN POTASSIUM 50 MG TABLET PO SCH (10:14)
[2019-08-04] MEDS: OXYCODONE HCL IR 5 MG TABLET PO PRN ×2 (10:14→20:11)
[2019-08-04] MEDS: METOPROLOL SUCCINATE 50 MG TAB.SR.24H PO SCH (10:14)
[2019-08-04 14:06] LABS: ANION GAP 10 (5-19); BLOOD UREA NITROGEN 14 mg/dL (7-20); CALCIUM 9.3 mg/dL (8.4-10.2); CARBON DIOXIDE 27 mmol/L (22-30); CHLORIDE 92 mmol/L (98-107); GLUCOSE 115 mg/dL (75-110); POTASSIUM 3.6 mmol/L (3.6-5.0)
--- NOTE | 2019-08-04 20:49 | PDOC PROGRESS REPORT ---
Subjective Progress Note for:: 08/04/19 Subjective:: Patient seen by the bedside, he is alert oriented to time place and person today, I discussed the MRI findings with the family and the plan of care, patient will stay the weekend, he will be discharged on Wednesday to follow outpatient with neurosurgery at [facility] Reason For Visit: HYPONATREMIC ENCEPHALOPATHY,METASTATIC PROSTATE Physical Exam Vital Signs: Temp Pulse Resp BP Pulse Ox 98.6 F 74 18 157/71 H 98 08/04/19 20:00 08/04/19 20:00 08/04/19 20:00 08/04/19 20:00 08/04/19 20:00 Intake & Output 08/03/19 08/04/19 08/05/19 06:59 06:59 06:59 Intake Total 222 580 Output Total 925 1000 Balance -703 -420 Weight 93.63 kg 91.7 kg General appearance: PRESENT: no acute distress Head exam: PRESENT: atraumatic, normocephalic Eye exam: PRESENT: PERRLA Ear exam: PRESENT: normal external ear exam Mouth exam: PRESENT: moist, tongue midline Neck exam: PRESENT: full ROM. ABSENT: carotid bruit, JVD, lymphadenopathy, thyromegaly Cardiovascular exam: PRESENT: RRR, +S1, +S2 Pulses: PRESENT: normal dorsalis pedis pul, +2 pedal pulses bilateral Vascular exam: PRESENT: normal capillary refill GI/Abdominal exam: PRESENT: normal bowel sounds, soft Rectal exam: PRESENT: deferred Neurological exam: PRESENT: alert, awake, oriented to person, oriented to place, oriented to time, oriented to situation, CN II-XII grossly intact Psychiatric exam: PRESENT: appropriate affect, normal mood Skin exam: PRESENT: dry, intact, warm Results Laboratory Results: 08/04/19 05:30 08/04/19 05:30 08/04/19 08/04/19 08/04/19 05:30 05:30 05:30 WBC 8.9 RBC 3.84 L Hgb 11.6 L Hct 32.6 L MCV 85 MCH 30.2 MCHC 35.6 RDW 13.7 Plt Count 272 Seg Neutrophils % 65.5 Sodium 128.6 L Potassium 3.6 Chloride 92 L Carbon Dioxide 27 Anion Gap 10 BUN 14 Creatinine 1.08 Est GFR ( Amer) > 60 Glucose 115 H Calcium 9.3 Total Bilirubin 0.8 AST 31 Alkaline Phosphatase 125 Total Protein 7.2 Albumin 3.8 Triglycerides 76 Cholesterol 135.13 LDL Cholesterol Direct 79 VLDL Cholesterol 15.0 HDL Cholesterol 45 TSH Free T4 08/04/19 05:30 WBC RBC Hgb Hct MCV MCH MCHC RDW Plt Count Seg Neutrophils % Sodium Potassium Chloride Carbon Dioxide Anion Gap BUN Creatinine Est GFR ( Amer) Glucose Calcium Total Bilirubin AST Alkaline Phosphatase Total Protein Albumin Triglycerides Cholesterol LDL Cholesterol Direct VLDL Cholesterol HDL Cholesterol TSH 1.64 Free T4 1.03 08/03/19 08/03/19 08/03/19 10:59 10:59 10:59 Creatine Kinase 752 H CK-MB (CK-2) 4.67 H Troponin I 0.013 NT-Pro-B Natriuret Pep 360 08/03/19 08/03/19 08/03/19 17:18 17:18 23:22 Creatine Kinase 813 H 668 H CK-MB (CK-2) 3.91 Troponin I 0.014 NT-Pro-B Natriuret Pep 08/03/19 23:22 Creatine Kinase CK-MB (CK-2) 3.12 Troponin I 0.013 NT-Pro-B Natriuret Pep Impressions: Head CT 08/02/19 22:36 IMPRESSION: 1. No acute intracranial abnormality by CT criteria. 2. Enlargement of the pituitary gland. If not previously performed, MRI of the brain with pituitary protocol would be recommended. This exam was performed according to our departmental dose-optimization program, which includes automated exposure control, adjustment of the mA and/or kV according to patient size and/or use of iterative reconstruction technique. Head MRI 08/03/19 00:00 IMPRESSION: No acute intracranial abnormality. Atrophy with small vessel ischemic change. Heterogeneously enhancing sellar based mass inseparable from the pituitary likely reflecting pituitary adenoma/macroadenoma. There is associated mass effect as above. Compared with the 2015 MRI, there does appear to be slight interval enlargement, given differences in technique copyright 2011 [employer]- All Rights Reserved Chest X-Ray 08/03/19 10:00 IMPRESSION: Minimal right basilar atelectasis Assessment & Plan - Diagnosis (1) Metabolic encephalopathy Is this a current diagnosis for this admission?: Yes Plan: Patient presents with metabolic encephalopathy with confusion altered mental status associated with severe hyponatremia, the serum sodium is 121There is associated decrease serum osmolality, the urine osmolality was ordered yet to be done,There is associated lower extremity edema, there is no evidence of CHF no evidence of liver cirrhosis/liver failure, no evidence of kidney failure (2) Pituitary mass Is this a current diagnosis for this admission?: Yes Plan: Patient with pituitary mass, MRI from 2014 also demonstrated this lesion, was patient is stabilized he will be referred to tertiary center for outpatient evaluation. 24-hour urine collection for free cortisol will be ordered,serum ACTH (3) Malignant neoplasm of prostate Is this a current diagnosis for this admission?: Yes Plan: He has history of metastatic prostate cancer with bone involvement (4) Hyponatremia Is this a current diagnosis for this admission?: Yes Plan: He has symptomatic hyponatremia start low-dose IV normal saline - Time Time Spent with patient: 35 or more minutes
[2019-08-05 07:00] LABS: ABSOLUTE BASOPHILS # (AUTO) 0.1 10^3/uL (0.0-0.2); ABSOLUTE EOSINOPHILS # (AUTO) 0.1 10^3/uL (0.0-0.6); ABSOLUTE LYMPHOCYTES (AUTO) 2.6 10^3/uL (0.5-4.7); ABSOLUTE MONOCYTES (AUTO) 1.1 10^3/uL (0.1-1.4); ABSOLUTE NEUT (AUTO) 7.6 10^3/uL (1.7-8.2); BASOPHILS % (AUTO) 0.5 % (0-2); EOSINOPHILS % (AUTO) 1.1 % (0-6); HEMATOCRIT 33.3 % (37.9-51.0); HEMOGLOBIN 11.6 g/dL (13.5-17.0); LYMPHOCYTES % (AUTO) 22.9 % (13-45); MEAN CORPUSCULAR HEMOGLOBIN 30.2 pg (27.0-33.4); MEAN CORPUSCULAR HGB CONC 34.8 g/dL (32.0-36.0); MEAN CORPUSCULAR VOLUME 87 fl (80-97); MONOCYTES % (AUTO) 9.7 % (3-13); RED BLOOD COUNT 3.83 10^6/uL (4.35-5.55); SEGMENTED NEUTROPHILS % (AUTO) 65.8 % (42-78); TOTAL CELLS COUNTED % (AUTO) 100 %; WHITE BLOOD COUNT 11.5 10^3/uL (4.0-10.5)
[2019-08-05 07:11] LABS: ALBUMIN 3.8 g/dL (3.5-5.0); ALKALINE PHOSPHATASE 126 U/L (38-126); ANION GAP 8 (5-19); ASPARTATE AMINO TRANSFERASE 29 U/L (17-59); BILIRUBIN,DIRECT 0.1 mg/dL (0.0-0.4); BILIRUBIN,TOTAL 0.5 mg/dL (0.2-1.3); BLOOD UREA NITROGEN 14 mg/dL (7-20); CALCIUM 9.1 mg/dL (8.4-10.2); CARBON DIOXIDE 29 mmol/L (22-30); CHLORIDE 95 mmol/L (98-107); GLUCOSE 108 mg/dL (75-110); POTASSIUM 3.9 mmol/L (3.6-5.0); TOTAL PROTEIN 6.5 g/dL (6.3-8.2)
[2019-08-05 07:17] LABS: PLATELET COUNT 259 10^3/uL (150-450)
[2019-08-05] MEDS: HEPARIN SOD (PORCINE) 5,000 UNIT/ML 1 ML VIAL SUBCUT SCH ×3 (10:24→22:02)
[2019-08-05] MEDS: OXYCODONE HCL IR 5 MG TABLET PO PRN ×2 (10:27→22:01)
[2019-08-05] MEDS: LOSARTAN POTASSIUM 50 MG TABLET PO SCH (10:27)
[2019-08-05] MEDS: DULOXETINE HCL 30 MG CAPSULE.DR PO SCH (10:28)
[2019-08-05] MEDS: METOPROLOL SUCCINATE 50 MG TAB.SR.24H PO SCH (10:28)
--- NOTE | 2019-08-05 11:33 | PDOC PROGRESS REPORT ---
Subjective Progress Note for:: 08/05/19 Subjective:: No new issue so far today. ambulate to his room toilet. No chest pain or difficulty with breathing. Daughter at bedside during my visit. No nausea, vomiting, or abdominal pain. No constipation or diarrhea. P.O intake remain fair. Reason For Visit: HYPONATREMIC ENCEPHALOPATHY,METASTATIC PROSTATE Physical Exam Vital Signs: Temp Pulse Resp BP Pulse Ox 98.6 F 63 18 157/71 H 98 08/04/19 20:00 08/05/19 07:00 08/04/19 20:00 08/04/19 20:00 08/04/19 20:00 Intake & Output 08/04/19 08/05/19 08/06/19 06:59 06:59 06:59 Intake Total 222 580 Output Total 925 1375 Balance -703 -795 Weight 91.7 kg 91.9 kg General appearance: PRESENT: no acute distress, well-developed, well-nourished Head exam: PRESENT: atraumatic, normocephalic Eye exam: PRESENT: conjunctiva pink. ABSENT: scleral icterus Ear exam: PRESENT: normal external ear exam Mouth exam: PRESENT: moist Respiratory exam: PRESENT: clear to auscultation julia Cardiovascular exam: PRESENT: RRR. ABSENT: diastolic murmur, rubs, systolic murmur Vascular exam: ABSENT: pallor GI/Abdominal exam: PRESENT: normal bowel sounds, soft. ABSENT: distended, guarding, mass, organolmegaly, rebound, tenderness Extremities exam: PRESENT: pedal edema - 1+ bilateral, STU hose in use Musculoskeletal exam: PRESENT: ambulatory Neurological exam: PRESENT: alert, awake, oriented to person, oriented to place, oriented to time, oriented to situation, CN II-XII grossly intact. ABSENT: motor sensory deficit Psychiatric exam: PRESENT: appropriate affect, normal mood. ABSENT: homicidal ideation, suicidal ideation Skin exam: PRESENT: dry, warm Results Laboratory Results: 08/05/19 06:00 08/05/19 06:00 08/04/19 08/04/19 08/04/19 05:30 09:00 09:00 WBC RBC Hgb Hct MCV MCH MCHC RDW Plt Count Seg Neutrophils % Sodium 128.6 L Potassium 3.6 Chloride 92 L Carbon Dioxide 27 Anion Gap 10 BUN 14 Creatinine 1.08 Est GFR ( Amer) > 60 Glucose 115 H Calcium 9.3 Total Bilirubin AST Alkaline Phosphatase Total Protein Albumin Urine Osmolality 429 Ur 24 Hour Volume Cancelled 08/05/19 08/05/19 06:00 06:00 WBC 11.5 H RBC 3.83 L Hgb 11.6 L Hct 33.3 L MCV 87 MCH 30.2 MCHC 34.8 RDW 14.0 Plt Count 259 Seg Neutrophils % 65.8 Sodium 131.9 L Potassium 3.9 Chloride 95 L Carbon Dioxide 29 Anion Gap 8 BUN 14 Creatinine 0.93 Est GFR ( Amer) > 60 Glucose 108 Calcium 9.1 Total Bilirubin 0.5 AST 29 Alkaline Phosphatase 126 Total Protein 6.5 Albumin 3.8 Urine Osmolality Ur 24 Hour Volume 08/03/19 08/03/19 08/03/19 10:59 10:59 10:59 Creatine Kinase 752 H CK-MB (CK-2) 4.67 H Troponin I 0.013 NT-Pro-B Natriuret Pep 360 08/03/19 08/03/19 08/03/19 17:18 17:18 23:22 Creatine Kinase 813 H 668 H CK-MB (CK-2) 3.91 Troponin I 0.014 NT-Pro-B Natriuret Pep 08/03/19 23:22 Creatine Kinase CK-MB (CK-2) 3.12 Troponin I 0.013 NT-Pro-B Natriuret Pep Impressions: Head CT 08/02/19 22:36 IMPRESSION: 1. No acute intracranial abnormality by CT criteria. 2. Enlargement of the pituitary gland. If not previously performed, MRI of the brain with pituitary protocol would be recommended. This exam was performed according to our departmental dose-optimization program, which includes automated exposure control, adjustment of the mA and/or kV according to patient size and/or use of iterative reconstruction technique. Head MRI 08/03/19 00:00 IMPRESSION: No acute intracranial abnormality. Atrophy with small vessel ischemic change. Heterogeneously enhancing sellar based mass inseparable from the pituitary likely reflecting pituitary adenoma/macroadenoma. There is associated mass effect as above. Compared with the 2015 MRI, there does appear to be slight interval enlargement, given differences in technique copyright 2011 [employer]- All Rights Reserved Chest X-Ray 08/03/19 10:00 IMPRESSION: Minimal right basilar atelectasis Assessment & Plan - Diagnosis (1) Hyponatremia Is this a current diagnosis for this admission?: Yes Plan: Improving on N/S infusion therapy. (2) Metabolic encephalopathy Is this a current diagnosis for this admission?: Yes Plan: Patient is lucid and appropriate in responses. His hyponatremia might have contributed to his presenting symptoms. Continue corrective measures and monitor his response. (3) Malignant neoplasm of prostate Is this a current diagnosis for this admission?: Yes Plan: Continue current supportive care. (4) Pituitary mass Is this a current diagnosis for this admission?: Yes Plan: Patient may benefit from proposed outpatient tertiary center referral upon discharge. (5) Hypertension Qualifiers: Hypertension type: essential hypertension Qualified Code(s): I10 - Essential (primary) hypertension Is this a current diagnosis for this admission?: Yes Plan: Maintain on Losartan therapy. He will remain on IV infusion to management his hyponatremia. If necessary a thiazide diuretic may be added to his regimen for blood pressure management. - Time Time Spent with patient: 25-34 minutes Medications reviewed and adjusted accordingly: Yes Anticipated discharge: Home with Homehealth Within: Other - Inpatient Certification Based on my medical assessment, after consideration of the patient's comorbid ities, presenting symptoms, or acuity I expect that the services needed warrant INPATIENT care.: Yes I certify that my determination is in accordance with my understanding of Medicare's requirements for reasonable and necessary INPATIENT services [42 CFR 412.3e].: Yes Medical Necessity: Significant Comorbidiites Make Outpatient Treatment Too Risky, Need Close Monitoring Due to Risk of Patient Decompensation, Need For IV Fluids, Need For Continuous Telemetry Monitoring, Risk of Complication if Not Cared For in Hospital, Risk of Diagnosis Which Will Require Inpatient Eval/Care/Monitoring Post Hospital Care: D/C Business Writer Documentation - Plan Summary Plan Summary: See covering attending physician orders for details about care plan.
[2019-08-05 12:14] LABS: URINE CREATININE 114.6 mg/dL (22-328)
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
[2019-08-06 05:54] LABS: ABSOLUTE BASOPHILS # (AUTO) 0.1 10^3/uL (0.0-0.2); ABSOLUTE EOSINOPHILS # (AUTO) 0.2 10^3/uL (0.0-0.6); ABSOLUTE LYMPHOCYTES (AUTO) 2.2 10^3/uL (0.5-4.7); ABSOLUTE NEUT (AUTO) 5.2 10^3/uL (1.7-8.2); BASOPHILS % (AUTO) 0.8 % (0-2); EOSINOPHILS % (AUTO) 1.8 % (0-6); HEMATOCRIT 30.5 % (37.9-51.0); HEMOGLOBIN 10.7 g/dL (13.5-17.0); LYMPHOCYTES % (AUTO) 25.9 % (13-45); MEAN CORPUSCULAR HEMOGLOBIN 30.5 pg (27.0-33.4); MEAN CORPUSCULAR VOLUME 87 fl (80-97); PLATELET COUNT 258 10^3/uL (150-450); RED BLOOD COUNT 3.49 10^6/uL (4.35-5.55); RED CELL DISTRIBUTION WIDTH 13.4 % (11.5-14.0); SEGMENTED NEUTROPHILS % (AUTO) 60.5 % (42-78); TOTAL CELLS COUNTED % (AUTO) 100 %; WHITE BLOOD COUNT 8.7 10^3/uL (4.0-10.5)
[2019-08-06] MEDS: HEPARIN SOD (PORCINE) 5,000 UNIT/ML 1 ML VIAL SUBCUT SCH ×3 (05:57→22:45)
[2019-08-06] MEDS: OXYCODONE HCL IR 5 MG TABLET PO PRN ×2 (05:58→17:36)
[2019-08-06 06:23] LABS: ALBUMIN 3.4 g/dL (3.5-5.0); ALKALINE PHOSPHATASE 116 U/L (38-126); ASPARTATE AMINO TRANSFERASE 22 U/L (17-59); BILIRUBIN,TOTAL 0.5 mg/dL (0.2-1.3); TOTAL PROTEIN 5.8 g/dL (6.3-8.2)
[2019-08-06] MEDS: METOPROLOL SUCCINATE 50 MG TAB.SR.24H PO SCH (09:51)
[2019-08-06] MEDS: DULOXETINE HCL 30 MG CAPSULE.DR PO SCH (09:51)
[2019-08-06] MEDS: LOSARTAN POTASSIUM 50 MG TABLET PO SCH (09:51)
--- NOTE | 2019-08-06 19:26 | PDOC PROGRESS REPORT ---
Subjective Progress Note for:: 08/06/19 Subjective:: Patient denied any chest pain or difficulty with breathing. No nausea, vomiting, or abdominal pain. No constipation or diarrhea. P.O intake remain fair. Reason For Visit: HYPONATREMIC ENCEPHALOPATHY,METASTATIC PROSTATE Physical Exam Vital Signs: Temp Pulse Resp BP Pulse Ox 98.2 F 69 18 162/66 H 96 08/06/19 16:40 08/06/19 16:40 08/06/19 16:40 08/06/19 16:40 08/06/19 16:40 Intake & Output 08/05/19 08/06/19 08/07/19 06:59 06:59 06:59 Intake Total 580 1842 950 Output Total 1375 925 400 Balance -795 917 550 Weight 91.9 kg 91.9 kg Physical Exam: General appearance: PRESENT: no acute distress, well-developed, well-nourished Head exam: PRESENT: atraumatic, normocephalic Eye exam: PRESENT: conjunctiva pink. ABSENT: pallor, scleral icterus Ear exam: PRESENT: normal external ear exam Mouth exam: PRESENT: moist Respiratory exam: PRESENT: clear to auscultation julia Cardiovascular exam: PRESENT: RRR. ABSENT: diastolic murmur, rubs, systolic murmur GI/Abdominal exam: PRESENT: normal bowel sounds, soft. ABSENT: distended, guarding, mass, organomegaly, rebound, tenderness Extremities exam: PRESENT: pedal edema - 1+ bilateral, STU hose in use Musculoskeletal exam: PRESENT: ambulatory Neurological exam: PRESENT: alert, awake, oriented to person, oriented to place, oriented to time, oriented to situation, CN II-XII grossly intact. ABSENT: motor sensory deficit Psychiatric exam: PRESENT: appropriate affect, normal mood. ABSENT: homicidal ideation, suicidal ideation Skin exam: PRESENT: dry, warm Results Laboratory Results: 08/06/19 05:30 08/05/19 06:00 08/06/19 08/06/19 05:30 05:30 WBC 8.7 RBC 3.49 L Hgb 10.7 L Hct 30.5 L MCV 87 MCH 30.5 MCHC 35.0 RDW 13.4 Plt Count 258 Seg Neutrophils % 60.5 Total Bilirubin 0.5 AST 22 Alkaline Phosphatase 116 Total Protein 5.8 L Albumin 3.4 L 08/03/19 08/03/1919 10:59 10:59 10:59 Creatine Kinase 752 H CK-MB (CK-2) 4.67 H Troponin I 0.013 NT-Pro-B Natriuret Pep 360 08/03/19 08/03/19 08/03/19 17:18 17:18 23:22 Creatine Kinase 813 H 668 H CK-MB (CK-2) 3.91 Troponin I 0.014 NT-Pro-B Natriuret Pep 08/03/19 23:22 Creatine Kinase CK-MB (CK-2) 3.12 Troponin I 0.013 NT-Pro-B Natriuret Pep Impressions: Head CT 08/02/19 22:36 IMPRESSION: 1. No acute intracranial abnormality by CT criteria. 2. Enlargement of the pituitary gland. If not previously performed, MRI of the brain with pituitary protocol would be recommended. This exam was performed according to our departmental dose-optimization program, which includes automated exposure control, adjustment of the mA and/or kV according to patient size and/or use of iterative reconstruction technique. Head MRI 08/03/19 00:00 IMPRESSION: No acute intracranial abnormality. Atrophy with small vessel ischemic change. Heterogeneously enhancing sellar based mass inseparable from the pituitary likely reflecting pituitary adenoma/macroadenoma. There is associated mass effect as above. Compared with the 2015 MRI, there does appear to be slight interval enlargement, given differences in technique copyright 2011 [employer]- All Rights Reserved Chest X-Ray 08/03/19 10:00 IMPRESSION: Minimal right basilar atelectasis Assessment & Plan - Diagnosis (1) Hyponatremia Is this a current diagnosis for this admission?: Yes (2) Metabolic encephalopathy Is this a current diagnosis for this admission?: Yes (3) Malignant neoplasm of prostate Is this a current diagnosis for this admission?: Yes (4) Pituitary mass Is this a current diagnosis for this admission?: Yes (5) Hypertension Qualifiers: Hypertension type: essential hypertension Qualified Code(s): I10 - Essential (primary) hypertension Is this a current diagnosis for this admission?: Yes - Time Time Spent with patient: 25-34 minutes Medications reviewed and adjusted accordingly: Yes Anticipated discharge: Home with Homehealth Within: Other - Inpatient Certification Based on my medical assessment, after consideration of the patient's comorbidities, presenting symptoms, or acuity I expect that the services needed warrant INPATIENT care.: Yes I certify that my determination is in accordance with my understanding of Medicare's requirements for reasonable and necessary INPATIENT services [42 CFR 412.3e].: Yes Medical Necessity: Significant Comorbidiites Make Outpatient Treatment Too Risky, Need Close Monitoring Due to Risk of Patient Decompensation, Need For Continuous Telemetry Monitoring, Risk of Complication if Not Cared For in Hospital, Risk of Diagnosis Which Will Require Inpatient Eval/Care/Monitoring Post Hospital Care: D/C Supervisor Tumblers Documentation - Plan Summary Plan Summary: Continue current medication management. Obtain BMP in am.
[2019-08-07] MEDS: OXYCODONE HCL IR 5 MG TABLET PO PRN ×2 (00:47→09:22)
[2019-08-07] MEDS: HEPARIN SOD (PORCINE) 5,000 UNIT/ML 1 ML VIAL SUBCUT SCH (05:39)
[2019-08-07 07:57] LABS: ANION GAP 9 (5-19); BLOOD UREA NITROGEN 18 mg/dL (7-20); CARBON DIOXIDE 30 mmol/L (22-30); CHLORIDE 94 mmol/L (98-107); GLUCOSE 100 mg/dL (75-110); POTASSIUM 3.9 mmol/L (3.6-5.0)
[2019-08-07] MEDS: DULOXETINE HCL 30 MG CAPSULE.DR PO SCH (09:13)
[2019-08-07] MEDS: METOPROLOL SUCCINATE 50 MG TAB.SR.24H PO SCH (09:13)
[2019-08-07] MEDS: LOSARTAN POTASSIUM 50 MG TABLET PO SCH (09:14)
--- NOTE | 2019-08-07 09:14 | PDOC PROGRESS REPORT ---
Subjective Progress Note for:: 08/07/19 Subjective:: Nausea seems to be doing well, he seems to be getting better Reason For Visit: HYPONATREMIC ENCEPHALOPATHY,METASTATIC PROSTATE Physical Exam Vital Signs: Temp Pulse Resp BP Pulse Ox 97.9 F 67 14 135/64 H 90 L 08/07/19 08:00 08/07/19 08:00 08/07/19 08:00 08/07/19 08:00 08/07/19 08:00 Intake & Output 08/06/19 08/07/19 08/08/19 06:59 06:59 06:59 Intake Total 1842 1050 Output Total 925 400 Balance 917 650 Weight 91.9 kg 91.8 kg General appearance: PRESENT: no acute distress, well-developed, well-nourished Head exam: PRESENT: atraumatic, normocephalic Eye exam: PRESENT: conjunctiva pink, EOMI, PERRLA. ABSENT: scleral icterus Ear exam: PRESENT: normal external ear exam Mouth exam: PRESENT: moist, tongue midline Neck exam: ABSENT: carotid bruit, JVD, lymphadenopathy, thyromegaly Respiratory exam: PRESENT: clear to auscultation julia. ABSENT: rales, rhonchi, wheezes Cardiovascular exam: PRESENT: RRR. ABSENT: diastolic murmur, rubs, systolic murmur Pulses: PRESENT: normal dorsalis pedis pul Vascular exam: PRESENT: normal capillary refill GI/Abdominal exam: PRESENT: normal bowel sounds, soft. ABSENT: distended, guarding, mass, organolmegaly, rebound, tenderness Rectal exam: PRESENT: deferred Extremities exam: PRESENT: full ROM. ABSENT: calf tenderness, clubbing, pedal edema Neurological exam: PRESENT: alert, awake, oriented to person, oriented to place, oriented to time, oriented to situation, CN II-XII grossly intact. ABSENT: motor sensory deficit Psychiatric exam: PRESENT: appropriate affect, normal mood. ABSENT: homicidal ideation, suicidal ideation Skin exam: PRESENT: dry, intact, warm. ABSENT: cyanosis, rash Results Laboratory Results: 08/06/19 05:30 08/07/19 06:52 08/07/19 06:52 Sodium 132.8 L Potassium 3.9 Chloride 94 L Carbon Dioxide 30 Anion Gap 9 BUN 18 Creatinine 0.87 Est GFR ( Amer) > 60 Glucose 100 Calcium 9.0 Magnesium 1.8 08/03/19 08/03/19 08/03/19 10:59 10:59 10:59 Creatine Kinase 752 H CK-MB (CK-2) 4.67 H Troponin I 0.013 NT-Pro-B Natriuret Pep 360 08/03/19 08/03/19 08/03/19 17:18 17:18 23:22 Creatine Kinase 813 H 668 H CK-MB (CK-2) 3.91 Troponin I 0.014 NT-Pro-B Natriuret Pep 08/03/19 23:22 Creatine Kinase CK-MB (CK-2) 3.12 Troponin I 0.013 NT-Pro-B Natriuret Pep Impressions: Head CT 08/02/19 22:36 IMPRESSION: 1. No acute intracranial abnormality by CT criteria. 2. Enlargement of the pituitary gland. If not previously performed, MRI of the brain with pituitary protocol would be recommended. This exam was performed according to our departmental dose-optimization program, which includes automated exposure control, adjustment of the mA and/or kV according to patient size and/or use of iterative reconstruction technique. Head MRI 08/03/19 00:00 IMPRESSION: No acute intracranial abnormality. Atrophy with small vessel ischemic change. Heterogeneously enhancing sellar based mass inseparable from the pituitary likely reflecting pituitary adenoma/macroadenoma. There is associated mass effect as above. Compared with the 2014 MRI, there does appear to be slight interval enlargement, given differences in technique copyright 2011 [employer]- All Rights Reserved Chest X-Ray 08/03/19 10:00 IMPRESSION: Minimal right basilar atelectasis Assessment & Plan - Diagnosis (1) Malignant neoplasm of prostate Is this a current diagnosis for this admission?: Yes Plan: Next follow-up in about 10 weeks, continue on therapy, good control of disease thus far (2) Pituitary mass Is this a current diagnosis for this admission?: Yes Plan: Recommend the patient gets outpatient evaluation by neurosurgery. (3) Intractable nausea and vomiting Is this a current diagnosis for this admission?: Yes Plan: Improved - Time Time Spent with patient: 25-34 minutes
--- NOTE | 2019-08-07 12:34 | PDOC DISCHARGE SUMMARY ---
Impression - Admit/DC Date/PCP Admission Date/Primary Care Provider: 08/03/19 10:07 CHAUNCEY CUNNINGHAM MD Discharge Date: 08/07/19 - Discharge Diagnosis (1) Hyponatremia Is this a current diagnosis for this admission?: Yes (2) Metabolic encephalopathy Is this a current diagnosis for this admission?: Yes (3) Pituitary mass Is this a current diagnosis for this admission?: Yes (4) Malignant neoplasm of prostate Is this a current diagnosis for this admission?: Yes - Additional Information Resuscitation Status: Full Code Referrals: CHAUNCEY CUNNINGHAM MD [Primary Care Provider] - 08/21/19 2:45 pm Home Medications: RX: Alprazolam [Xanax 0.25 mg Tablet] 0.25 mg PO TID 08/03/19 RX: Duloxetine HCl [Cymbalta] 60 mg PO DAILY 08/03/19 RX: Losartan Potassium [Cozaar 100 mg Tablet] 100 mg PO DAILY 08/03/19 RX: Methocarbamol [Robaxin 750 mg Tablet] 750 mg PO BIDP PRN 08/03/19 RX: Metoprolol Succinate [Toprol XL 100 mg Tablet] 100 mg PO DAILY 08/03/19 RX: Mirtazapine [Remeron] 30 mg PO QHS 08/03/19 RX: Oxycodone HCl [Oxycodone HCl 10 MG Tablet] 10 mg PO QID 08/03/19 RX: Simvastatin [Zocor 20 mg Tablet] 20 mg PO QHS 08/03/19 History of Present Illiness History of Present Illness: CHARLES RICK is a 74 year old male, He has a history of metastatic prostate cancer with extensive bone metastasis on hormonal therapy, he also previously underwent radiotherapy for the prostate cancer. He came to emergency room for evaluation of, confusion, altered mental status, the serum sodium was 121, CT head was done that demonstrated enlarged pituitary gland.I ordered MRI of the brain with IV contrast, it demonstrated no enhancing abnormality within the brain there was a heterogeneous enhancing mass centered within the pituitary gland that measured approximately 1.8 cm craniocaudally by 1.3 cm transversely. This extends slightly to the left of the midline with displacement of the infundibulum, and mass-effect on the optic asthma, the same lesion was demonstrated from 2015 MRI but does appear to have slightly increased this is probably pituitary adenoma/macroadenoma Hospital Course Hospital Course: Was admitted for the management of hyponatremic encephalopathy, He was treated with low-dose normal saline, on admission he was very confused, with treatment he regained full alertness, improved cognition. 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 He has underlining stage IV prostate cancer Physical Exam Vital Signs: Temp Pulse Resp BP Pulse Ox 97.9 F 67 14 135/64 H 90 L 08/07/19 08:00 08/07/19 08:00 08/07/19 08:00 08/07/19 08:00 08/07/19 08:00 Intake & Output 08/06/19 08/07/19 08/08/19 06:59 06:59 06:59 Intake Total 1842 1050 Output Total 925 400 Balance 917 650 Weight 91.9 kg 91.8 kg General appearance: PRESENT: no acute distress Eye exam: PRESENT: PERRLA Respiratory exam: PRESENT: clear to auscultation julia Cardiovascular exam: PRESENT: +S1, +S2 GI/Abdominal exam: PRESENT: soft Neurological exam: PRESENT: alert, CN II-XII grossly intact Results Laboratory Results: WBC 8.7 10^3/uL (4.0-10.5) 08/06/19 05:30 RBC 3.49 10^6/uL (4.35-5.55) L 08/06/19 05:30 Hgb 10.7 g/dL (13.5-17.0) L 08/06/19 05:30 Hct 30.5 % (37.9-51.0) L 08/06/19 05:30 MCV 87 fl (80-97) 08/06/19 05:30 MCH 30.5 pg (27.0-33.4) 08/06/19 05:30 MCHC 35.0 g/dL (32.0-36.0) 08/06/19 05:30 RDW 13.4 % (11.5-14.0) 08/06/19 05:30 Plt Count 258 10^3/uL (150-450) 08/06/19 05:30 Lymph % (Auto) 25.9 % (13-45) 08/06/19 05:30 [place] % (Auto) 11.0 % (3-13) 08/06/19 05:30 Eos % (Auto) 1.8 % (0-6) 08/06/19 05:30 Baso % (Auto) 0.8 % (0-2) 08/06/19 05:30 Absolute Neuts (auto) 5.2 10^3/uL (1.7-8.2) 08/06/19 05:30 Absolute Lymphs (auto) 2.2 10^3/uL (0.5-4.7) 08/06/19 05:30 Absolute Monos (auto) 1.0 10^3/uL (0.1-1.4) 08/06/19 05:30 Absolute Eos (auto) 0.2 10^3/uL (0.0-0.6) 08/06/19 05:30 Absolute Basos (auto) 0.1 10^3/uL (0.0-0.2) 08/06/19 05:30 Seg Neutrophils % 60.5 % (42-78) 08/06/19 05:30 PT 14.1 SEC (11.4-15.4) 08/03/19 10:59 INR 1.09 08/03/19 10:59 APTT 30.3 SEC (23.5-35.8) 08/03/19 10:59 Carbonic Acid 1.04 mmol/L (1.05-1.35) L 08/03/19 12:00 HCO3/H2CO3 Ratio 21:1 08/03/19 12:00 ABG pH 7.43 (7.35-7.45) 08/03/19 12:00 ABG pCO2 34.4 mmHg (35-45) L 08/03/19 12:00 ABG pO2 91.5 mmHg (80-100) 08/03/19 12:00 ABG HCO3 22.3 mmol/L (20-24) 08/03/19 12:00 ABG Total CO2 23.4 mmol/L (23-27) 08/03/19 12:00 ABG O2 Saturation 97.3 % (94-98) 08/03/19 12:00 ABG Base Excess -1.4 mmol/L 08/03/19 12:00 VBG pH 7.35 (7.30-7.42) 08/02/19 22:38 VBG pCO2 49.4 mmHg (35-63) 08/02/19 22:38 VBG HCO3 26.9 mmol/L (20-32) 08/02/19 22:38 VBG Base Excess 0.7 mmol/L 08/02/19 22:38 FiO2 2L 08/03/19 12:00 Sodium 132.8 mmol/L (137-145) L 08/07/19 06:52 Potassium 3.9 mmol/L (3.6-5.0) 08/07/19 06:52 Chloride 94 mmol/L (98-107) L 08/07/19 06:52 Carbon Dioxide 30 mmol/L (22-30) 08/07/19 06:52 Anion Gap 9 (5-19) 08/07/19 06:52 BUN 18 mg/dL (7-20) 08/07/19 06:52 Creatinine 0.87 mg/dL (0.52-1.25) 08/07/19 06:52 Est GFR ( Amer) > 60 (>60) 08/07/19 06:52 Est GFR (MDRD) Non-Af > 60 (>60) 08/07/19 06:52 Glucose 100 mg/dL (75-110) 08/07/19 06:52 POC Glucose 152 mg/dL (70-110) H 08/02/19 21:48 Hemoglobin A1c % 6.1 % (4.7-6.0) H 08/04/19 05:30 Serum Osmolality 250 mOsm/kg (275-301) L 08/03/19 10:59 Lactic Acid 1.3 mmol/L (0.7-2.1) 08/02/19 22:38 Calcium 9.0 mg/dL (8.4-10.2) 08/07/19 06:52 Phosphorus 3.0 mg/dL (2.5-4.5) 08/03/19 10:59 Magnesium 1.8 mg/dL (1.6-2.3) 08/07/19 06:52 Total Bilirubin 0.5 mg/dL (0.2-1.3) 08/06/19 05:30 Direct Bilirubin 0.0 mg/dL (0.0-0.4) 08/06/19 05:30 Neonat Total Bilirubin Not Reportable 08/06/19 05:30 Neonat Direct Bilirubin Not Reportable 08/06/19 05:30 Neonat Indirect Bili Not Reportable 08/06/19 05:30 AST 22 U/L (17-59) 08/06/19 05:30 ALT 13 U/L (<50) 08/06/19 05:30 Alkaline Phosphatase 116 U/L (38-126) 08/06/19 05:30 Ammonia < 8.7 umol/L (9-33) L 08/03/19 10:59 Creatine Kinase 668 U/L (55-170) H 08/03/19 23:22 CK-MB (CK-2) 3.12 ng/mL (<4.55) 08/03/19 23:22 Troponin I 0.013 ng/mL 08/03/19 23:22 NT-Pro-B Natriuret Pep 360 pg/mL (<450) 08/03/19 10:59 Total Protein 5.8 g/dL (6.3-8.2) L 08/06/19 05:30 Albumin 3.4 g/dL (3.5-5.0) L 08/06/19 05:30 Triglycerides 76 mg/dL (<150) 08/04/19 05:30 Cholesterol 135.13 mg/dL (0-200) 08/04/19 05:30 LDL Cholesterol Direct 79 mg/dL (<100) 08/04/19 05:30 VLDL Cholesterol 15.0 mg/dL (10-31) 08/04/19 05:30 HDL Cholesterol 45 mg/dL (>40) 08/04/19 05:30 Amylase 81 U/L (30-110) 08/03/19 10:59 Lipase 72.0 U/L (23-300) 08/03/19 10:59 TSH 1.64 uIU/mL (0.47-4.68) 08/04/19 05:30 Free T4 1.03 ng/dL (0.78-2.19) 08/04/19 05:30 FSH 5.94 mIU/mL 08/04/19 05:30 Urine Osmolality 429 mOsm/kg (300-900) 08/04/19 09:00 Ur 24 Hour Volume 1540 mL 08/04/19 09:00 Ur 24 Hour Volume Cancelled 08/04/19 09:00 Urine Creatinine 114.6 mg/dL (22-328) 08/04/19 09:00 Urine Creatinine Cancelled 08/04/19 09:00 Ur Creatinine mg/24hr 1.8 mg/day (0.8-2.0) 08/04/19 09:00 Ur Creatinine mg/24hr Cancelled 08/04/19 09:00 Urine Sodium 14 mmol/L (30-90) L 08/04/19 08:26 08/03/19 08/03/19 08/03/19 10:59 10:59 17:18 CK-MB (CK-2) 4.67 H 3.91 Troponin I 0.013 0.014 NT-Pro-B Natriuret Pep 360 08/03/19 23:22 CK-MB (CK-2) 3.12 Troponin I 0.013 NT-Pro-B Natriuret Pep Impressions: Head CT 08/02/19 22:36 IMPRESSION: 1. No acute intracranial abnormality by CT criteria. 2. Enlargement of the pituitary gland. If not previously performed, MRI of the brain with pituitary protocol would be recommended. This exam was performed according to our departmental dose-optimization program, which includes automated exposure control, adjustment of the mA and/or kV according to patient size and/or use of iterative reconstruction technique. Head MRI 08/03/19 00:00 IMPRESSION: No acute intracranial abnormality. Atrophy with small vessel ischemic change. Heterogeneously enhancing sellar based mass inseparable from the pituitary likely reflecting pituitary adenoma/macroadenoma. There is associated mass effect as above. Compared with the 2015 MRI, there does appear to be slight interval enlargement, given differences in technique copyright 2011 [employer]- All Rights Reserved Chest X-Ray 08/03/19 10:00 IMPRESSION: Minimal right basilar atelectasis Stroke Is this a Stroke Patient?: No Stroke Pt being discharged on Anti-thrombolytic therapy?: No Reason(s) for not prescribing Anti-thrombolytic therapy:: Not indicated Stroke Pt being discharged on Anti-coagulation therapy?: No Reason(s) for not prescribing Anti-coagulation therapy:: Not indicated Stroke Pt being discharged on Statins?: No Reason(s) for not prescribing Statins therapy:: Not indicated Acute Heart Failure - Is this a Heart Failure Patient?: No Follow-up Appointment scheduled within 7 days?: Yes
[2019-08-07 13:29] VITALS: BP 164/78
== END 2019-08-07 14:10 | disposition home or self-care (01) | DRG 640 ==
LOC: ER 21:09 → EH 08-03 10:07 → 3W 08-03 11:18
PROVIDERS: ADMIT Internal Medicine; ATTEND Internal Medicine
PROC: 3E0234Z Introduction of Serum, Toxoid and Vaccine into Muscle, Percutaneous Approach (ICD-10-PCS; principal; 2019-08-07)
DX: E87.1 Hypo-osmolality and hyponatremia (principal); G93.41 Metabolic encephalopathy; C79.51 Secondary malignant neoplasm of bone; C79.89 Secondary malignant neoplasm of other specified sites; C61 Malignant neoplasm of prostate; E23.6 Other disorders of pituitary gland; I10 Essential (primary) hypertension; K21.9 Gastro-esophageal reflux disease without esophagitis; Z79.891 Long term (current) use of opiate analgesic; Z79.899 Other long term (current) drug therapy; Z23 Encounter for immunization
CPT/HCPCS: 36415; 70450; 70553; 71045; 80048; 80053; 80061; 80076; 82140; 82150; 82530; 82550; 82553; 82570; 82803; 82962; 83001; 83036; 83605; 83690; 83735; 83880; 83930; 83935; 84100; 84300; 84439; 84443; 84484; 85025; 85610; 85730; 87040; 90686; 93005; 93010; 96361; 96374; 96376; 99291; 99292; A9576; J1644; J2270; J2405; J7030

== ENCOUNTER 2019-10-08 01:05 | Inpatient (IN) | payer MEDICARE, MEDICAID ==
[2019-10-08] MEDS ORDERED: LORAZEPAM INJ 2 MG/1 ML VIAL IV ONE ×2 (02:12→02:16)
[2019-10-08] MEDS ORDERED: LEVETIRACETAM 1000 MG/NACL-ISO 1,000 MG/100 ML RTUPB IV ONE (02:14)
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
[2019-10-08 02:44] LABS: ALBUMIN 4.4 g/dL (3.5-5.0); ALKALINE PHOSPHATASE 411 U/L (38-126); ANION GAP 16 (5-19); ASPARTATE AMINO TRANSFERASE 32 U/L (17-59); BILIRUBIN,DIRECT 0.2 mg/dL (0.0-0.4); BILIRUBIN,TOTAL 0.6 mg/dL (0.2-1.3); BLOOD UREA NITROGEN 13 mg/dL (7-20); CALCIUM 9.8 mg/dL (8.4-10.2); CARBON DIOXIDE 22 mmol/L (22-30); CHLORIDE 101 mmol/L (98-107); GLUCOSE 111 mg/dL (75-110); POTASSIUM 4.4 mmol/L (3.6-5.0); TOTAL PROTEIN 7.6 g/dL (6.3-8.2)
[2019-10-08 02:46] LABS: ALCOHOL < 10 mg/dL (NONE DETECTED)
[2019-10-08 02:51] LABS: ABSOLUTE BASOPHILS # (AUTO) 0.1 10^3/uL (0.0-0.2); ABSOLUTE EOSINOPHILS # (AUTO) 0.1 10^3/uL (0.0-0.6); ABSOLUTE LYMPHOCYTES (AUTO) 1.5 10^3/uL (0.5-4.7); ABSOLUTE MONOCYTES (AUTO) 0.7 10^3/uL (0.1-1.4); ABSOLUTE NEUT (AUTO) 10.5 10^3/uL (1.7-8.2); BASOPHILS % (AUTO) 0.5 % (0-2); EOSINOPHILS % (AUTO) 0.7 % (0-6); HEMATOCRIT 35.6 % (37.9-51.0); HEMOGLOBIN 11.9 g/dL (13.5-17.0); LYMPHOCYTES % (AUTO) 11.9 % (13-45); MEAN CORPUSCULAR HEMOGLOBIN 29.8 pg (27.0-33.4); MEAN CORPUSCULAR HGB CONC 33.4 g/dL (32.0-36.0); MEAN CORPUSCULAR VOLUME 89 fl (80-97); MONOCYTES % (AUTO) 5.6 % (3-13); PLATELET COUNT 372 10^3/uL (150-450); SEGMENTED NEUTROPHILS % (AUTO) 81.3 % (42-78); TOTAL CELLS COUNTED % (AUTO) 100 %; WHITE BLOOD COUNT 12.9 10^3/uL (4.0-10.5)
[2019-10-08 03:46] LABS: VENOUS BLOOD BASE EXCESS -0.5 mmol/L; VENOUS BLOOD HCO3 24.5 mmol/L (20-32); VENOUS BLOOD PCO2 41.6 mmHg (35-63); VENOUS BLOOD PH 7.39 (7.30-7.42)
--- NOTE | 2019-10-08 04:31 | RADIOLOGY REPORT (SQ) ---
Chest single view on 10/08/2019 at 3:12 AM CLINICAL INDICATION: Altered mental status COMPARISON: 08/03/2019 FINDINGS: Multiple wires are noted projecting over the chest. There is mild left basilar opacity consistent with atelectasis or early pneumonia. Lungs are otherwise clear. Cardiac, hilar and mediastinal contours are within normal limits. Vascular calcification is noted in the aorta. Pulmonary vascularity is within normal limits. IMPRESSION: Mild left basilar opacity consistent with atelectasis or early pneumonia.
--- NOTE | 2019-10-08 05:14 | RADIOLOGY REPORT (SQ) ---
CT head without contrast on 10/08/2019 at 4:15 AM CLINICAL INDICATION: Seizure, history of brain cancer TECHNIQUE: Multiple axial images are obtained throughout the head without the administration of contrast. This exam was performed according to our departmental dose-optimization program, which includes automated exposure control, adjustment of the mA and/or kV according to patient size and/or use of iterative reconstruction technique. Total DLP is 880.77 mGy*cm. COMPARISON: 08/02/2019 FINDINGS: There is generalized cerebral atrophy. There is low density in the periventricular white matter consistent with chronic small vessel ischemic changes. There is no hydrocephalus. There is no hemorrhage. There are no abnormal extra-axial fluid collections. There is a stable sellar and suprasellar mass likely representing a pituitary macroadenoma. There is no other mass and no mass effect or midline shift. No bony abnormality is noted. IMPRESSION: 1. 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 2. Atrophy and chronic small vessel ischemic changes with otherwise no acute intracranial abnormality.
[2019-10-08] MEDS ORDERED: AZITHROMYCIN INJ 500 MG VIAL IV ONE (05:15)
[2019-10-08] MEDS ORDERED: CEFTRIAXONE 1 GM/D5W RTU 1 GM/50 ML RTUPB IV ONE (05:15)
[2019-10-08 07:15] LABS: APPEARANCE,URINE CLEAR; BILIRUBIN,URINE NEGATIVE (NEGATIVE); COLOR,URINE STRAW; GLUCOSE, URINE NEGATIVE (NEGATIVE); KETONES,URINE NEGATIVE (NEGATIVE); LEUKOCYTE ESTERASE,URINE NEGATIVE (NEGATIVE); NITRITE,URINE NEGATIVE (NEGATIVE); PROTEIN,URINE NEGATIVE (NEGATIVE); UROBILINOGEN,URINE NEGATIVE mg/dL (<2.0)
[2019-10-08] MEDS ORDERED: INFLUENZA QUAD (6MOS+) 2019-20 VAC 0.5 ML SYR IM ONE (08:06)
[2019-10-08] MEDS ORDERED: LORAZEPAM INJ 2 MG/1 ML VIAL IV PRN (10:33)
--- NOTE | 2019-10-08 12:06 | EKG REPORT ---
SEVERITY:- NORMAL ECG - SINUS RHYTHM : Confirmed by: Armida Jacobson MD 08-Oct-2019 12:05:49
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
[2019-10-08] MEDS ORDERED: ENALAPRILAT DIHYDRATE INJ/PF 1.25 MG/1 ML SDV IV PRN (14:29)
[2019-10-08] MEDS ORDERED: OXYCODONE HCL IR 5 MG TABLET PO PRN (14:40)
[2019-10-08] MEDS: DEXTROSE 5%-NORMAL SALINE 1,000 ML IV PRN (14:42)
[2019-10-08] MEDS: LEVETIRACETAM 500 MG/NACL-ISO 500 MG/100 ML RTUPB IV SCH (21:29)
[2019-10-08] MEDS ORDERED: LEVETIRACETAM 500 MG in NORMAL SALINE 100 ML IV SCH (22:00)
[2019-10-09] MEDS: PANTOPRAZOLE SODIUM 40 MG TABLET.DR PO SCH (05:34)
[2019-10-09 05:59] LABS: ABSOLUTE BASOPHILS # (AUTO) 0.1 10^3/uL (0.0-0.2); ABSOLUTE EOSINOPHILS # (AUTO) 0.1 10^3/uL (0.0-0.6); ABSOLUTE LYMPHOCYTES (AUTO) 2.3 10^3/uL (0.5-4.7); ABSOLUTE MONOCYTES (AUTO) 0.7 10^3/uL (0.1-1.4); ABSOLUTE NEUT (AUTO) 4.5 10^3/uL (1.7-8.2); BASOPHILS % (AUTO) 1.2 % (0-2); EOSINOPHILS % (AUTO) 1.6 % (0-6); HEMATOCRIT 32.1 % (37.9-51.0); HEMOGLOBIN 11.2 g/dL (13.5-17.0); LYMPHOCYTES % (AUTO) 29.6 % (13-45); MEAN CORPUSCULAR HGB CONC 34.7 g/dL (32.0-36.0); MEAN CORPUSCULAR VOLUME 86 fl (80-97); PLATELET COUNT 322 10^3/uL (150-450); RED BLOOD COUNT 3.73 10^6/uL (4.35-5.55); RED CELL DISTRIBUTION WIDTH 14.6 % (11.5-14.0); SEGMENTED NEUTROPHILS % (AUTO) 58.6 % (42-78); TOTAL CELLS COUNTED % (AUTO) 100 %; WHITE BLOOD COUNT 7.8 10^3/uL (4.0-10.5)
[2019-10-09 06:19] LABS: ALBUMIN 3.5 g/dL (3.5-5.0); ALKALINE PHOSPHATASE 354 U/L (38-126); ANION GAP 9 (5-19); ASPARTATE AMINO TRANSFERASE 28 U/L (17-59); BILIRUBIN,DIRECT 0.1 mg/dL (0.0-0.4); BILIRUBIN,TOTAL 0.7 mg/dL (0.2-1.3); BLOOD UREA NITROGEN 6 mg/dL (7-20); CARBON DIOXIDE 24 mmol/L (22-30); CHLORIDE 104 mmol/L (98-107); GLUCOSE 110 mg/dL (75-110); POTASSIUM 3.5 mmol/L (3.6-5.0); TOTAL PROTEIN 6.6 g/dL (6.3-8.2)
[2019-10-09] MEDS ORDERED: FUROSEMIDE 40 MG TABLET PO SCH (08:00)
[2019-10-09] MEDS ORDERED: DULOXETINE HCL 30 MG CAPSULE.DR PO SCH (10:00)
[2019-10-09] MEDS ORDERED: METOPROLOL SUCCINATE 50 MG TAB.SR.24H PO SCH (10:00)
[2019-10-09] MEDS: LOSARTAN POTASSIUM 50 MG TABLET PO SCH (12:10)
[2019-10-09] MEDS: METOPROLOL SUCCINATE 50 MG TAB.SR.24H PO SCH (12:10)
[2019-10-09] MEDS: DULOXETINE HCL 30 MG CAPSULE.DR PO SCH (12:10)
[2019-10-09] MEDS: CEFTRIAXONE 1 GM/D5W RTU 1 GM/50 ML RTUPB IV SCH (12:11)
[2019-10-09] MEDS: ENOXAPARIN SODIUM INJ 40 MG/0.4 ML DISP.SYRIN SUBCUT SCH (12:11)
[2019-10-09] MEDS: DEXTROSE 5%-NORMAL SALINE 1,000 ML IV PRN (12:17)
[2019-10-09] MEDS: FUROSEMIDE 40 MG TABLET PO SCH (12:22)
[2019-10-09] MEDS: LEVETIRACETAM 500 MG/NACL-ISO 500 MG/100 ML RTUPB IV SCH ×2 (12:52→21:20)
[2019-10-09] MEDS: AZITHROMYCIN 500 MG in DEXTROSE 5%-WATER 250 ML IV SCH (12:53)
--- NOTE | 2019-10-09 21:21 | PDOC PROGRESS REPORT ---
Subjective Progress Note for:: 10/09/19 Subjective:: Patient was admitted yesterday for the management of pneumonia, seizure, altered mental status, he was seen today by the bedside Reason For Visit: SEIZURE DISORDER LOBAR PNEUMONIA METABOLIC Physical Exam Vital Signs: Temp Pulse Resp BP Pulse Ox 98.3 F 79 17 145/65 H 96 10/09/19 20:04 10/09/19 20:04 10/09/19 20:04 10/09/19 20:04 10/09/19 20:04 Intake & Output 10/08/19 10/09/19 10/10/19 06:59 06:59 06:59 Intake Total 166 253 5443 Output Total 600 425 Balance -450 -325 1640 Weight 88 kg 86.2 kg General appearance: PRESENT: no acute distress, well-developed, well-nourished Head exam: PRESENT: atraumatic, normocephalic Eye exam: PRESENT: PERRLA Ear exam: PRESENT: normal external ear exam Mouth exam: PRESENT: moist, tongue midline Neck exam: PRESENT: full ROM Respiratory exam: PRESENT: clear to auscultation julia Cardiovascular exam: PRESENT: RRR, +S1, +S2 Pulses: PRESENT: normal dorsalis pedis pul, +2 pedal pulses bilateral Vascular exam: PRESENT: normal capillary refill GI/Abdominal exam: PRESENT: normal bowel sounds, soft Rectal exam: PRESENT: deferred Neurological exam: PRESENT: alert, CN II-XII grossly intact Psychiatric exam: PRESENT: appropriate affect, normal mood Skin exam: PRESENT: dry, intact, warm Results Laboratory Results: 10/09/19 03:29 10/09/19 03:29 10/09/19 10/09/19 03:29 03:29 WBC 7.8 RBC 3.73 L Hgb 11.2 L Hct 32.1 L MCV 86 MCH 30.0 MCHC 34.7 RDW 14.6 H Plt Count 322 Seg Neutrophils % 58.6 Sodium 137.2 Potassium 3.5 L Chloride 104 Carbon Dioxide 24 Anion Gap 9 BUN 6 L Creatinine 0.77 Est GFR ( Amer) > 60 Glucose 110 Calcium 9.0 Total Bilirubin 0.7 AST 28 Alkaline Phosphatase 354 H Total Protein 6.6 Albumin 3.5 10/08/19 01:40 Troponin I < 0.012 Impressions: Chest X-Ray 10/08/19 02:15 IMPRESSION: Mild left basilar opacity consistent with atelectasis or early pneumonia. Head CT 10/08/19 02:15 IMPRESSION: 1. 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 2. Atrophy and chronic small vessel ischemic changes with otherwise no acute intracranial abnormality. Assessment & Plan - Diagnosis (1) Lobar pneumonia, unspecified organism Is this a current diagnosis for this admission?: Yes (2) Seizure Is this a current diagnosis for this admission?: Yes - Time Time Spent with patient: 15-24 minutes - Plan Summary Plan Summary: Continued present line of management
[2019-10-10] MEDS: PANTOPRAZOLE SODIUM 40 MG TABLET.DR PO SCH (07:26)
[2019-10-10] MEDS: FUROSEMIDE 40 MG TABLET PO SCH (08:03)
[2019-10-10] MEDS: DULOXETINE HCL 30 MG CAPSULE.DR PO SCH (09:50)
[2019-10-10] MEDS: LOSARTAN POTASSIUM 50 MG TABLET PO SCH (09:51)
[2019-10-10] MEDS: METOPROLOL SUCCINATE 50 MG TAB.SR.24H PO SCH (09:51)
[2019-10-10] MEDS: ENOXAPARIN SODIUM INJ 40 MG/0.4 ML DISP.SYRIN SUBCUT SCH (09:52)
[2019-10-10] MEDS: AZITHROMYCIN 500 MG in DEXTROSE 5%-WATER 250 ML IV SCH (09:52)
[2019-10-10] MEDS: CEFTRIAXONE 1 GM/D5W RTU 1 GM/50 ML RTUPB IV SCH (09:52)
[2019-10-10] MEDS: LEVETIRACETAM 500 MG/NACL-ISO 500 MG/100 ML RTUPB IV SCH ×2 (09:53→21:11)
[2019-10-10] MEDS: DEXTROSE 5%-NORMAL SALINE 1,000 ML IV PRN (15:10)
[2019-10-10] MEDS: OXYCODONE HCL IR 5 MG TABLET PO PRN (21:17)
--- NOTE | 2019-10-10 21:54 | PDOC PROGRESS REPORT ---
Subjective Progress Note for:: 10/10/19 Subjective:: Patient seen by the bedside admitted for seizure, pneumonia on IV antibiotic hopefully discharge home in a.m. Reason For Visit: SEIZURE DISORDER LOBAR PNEUMONIA METABOLIC Physical Exam Vital Signs: Temp Pulse Resp BP Pulse Ox 98.9 F 66 18 160/72 H 96 10/10/19 19:58 10/10/19 19:58 10/10/19 19:58 10/10/19 19:58 10/10/19 19:58 Intake & Output 10/09/19 10/10/19 10/11/19 06:59 06:59 06:59 Intake Total 100 2338 2180 Output Total 425 Balance -325 2338 2180 Weight 86.2 kg 87.1 kg General appearance: PRESENT: no acute distress Eye exam: PRESENT: PERRLA Respiratory exam: PRESENT: clear to auscultation julia Cardiovascular exam: PRESENT: +S1, +S2 GI/Abdominal exam: PRESENT: soft Neurological exam: PRESENT: alert Results Laboratory Results: 10/09/19 03:29 10/09/19 03:29 10/08/19 01:40 Troponin I < 0.012 Impressions: Chest X-Ray 10/08/19 02:15 IMPRESSION: Mild left basilar opacity consistent with atelectasis or early pneumonia. Head CT 10/08/19 02:15 IMPRESSION: 1. 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 2. Atrophy and chronic small vessel ischemic changes with otherwise no acute intracranial abnormality. Assessment & Plan - Diagnosis (1) Lobar pneumonia, unspecified organism Is this a current diagnosis for this admission?: Yes (2) Seizure Is this a current diagnosis for this admission?: Yes - Time Time Spent with patient: Less than 15 minutes
[2019-10-11] MEDS: PANTOPRAZOLE SODIUM 40 MG TABLET.DR PO SCH (06:58)
[2019-10-11] MEDS: FUROSEMIDE 40 MG TABLET PO SCH (08:14)
[2019-10-11] MEDS: OXYCODONE HCL IR 5 MG TABLET PO PRN (08:22)
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
[2019-10-11] MEDS: LEVETIRACETAM 500 MG/NACL-ISO 500 MG/100 ML RTUPB IV SCH (09:33)
[2019-10-11] MEDS: DULOXETINE HCL 30 MG CAPSULE.DR PO SCH (09:33)
[2019-10-11] MEDS: METOPROLOL SUCCINATE 50 MG TAB.SR.24H PO SCH (09:33)
[2019-10-11] MEDS: LOSARTAN POTASSIUM 50 MG TABLET PO SCH (09:33)
[2019-10-11] MEDS: ENOXAPARIN SODIUM INJ 40 MG/0.4 ML DISP.SYRIN SUBCUT SCH (09:33)
[2019-10-11] MEDS ORDERED: AZITHROMYCIN 250 MG TABLET PO SCH (10:00)
[2019-10-11] MEDS: CEFTRIAXONE 1 GM/D5W RTU 1 GM/50 ML RTUPB IV SCH (12:23)
[2019-10-11] MEDS: DEXTROSE 5%-NORMAL SALINE 1,000 ML IV PRN (14:03)
[2019-10-11 15:20] VITALS: BP 158/93
--- NOTE | 2019-10-11 17:48 | PDOC DISCHARGE SUMMARY ---
Impression - Admit/DC Date/PCP Admission Date/Primary Care Provider: 10/08/19 05:55 CHAUNCEY CUNNINGHAM MD Discharge Date: 10/11/19 - Discharge Diagnosis (1) Lobar pneumonia, unspecified organism Is this a current diagnosis for this admission?: Yes (2) Metabolic encephalopathy Is this a current diagnosis for this admission?: Yes (3) Seizure Is this a current diagnosis for this admission?: Yes (4) Pituitary macroadenoma with extrasellar extension Is this a current diagnosis for this admission?: Yes (5) Malignant neoplasm of prostate Is this a current diagnosis for this admission?: Yes - Additional Information Resuscitation Status: Full Code Discharge Diet: As Tolerated, Regular Discharge Activity: Activity As Tolerated, Balance Activity w/Rest Referrals: CHAUNCEY CUNNINGHAM MD [Primary Care Provider] - 10/13/19 9:15 am (PROSTATE CA WITH METS) Prescriptions: Levetiracetam [Keppra 500 mg Tablet] 500 mg PO Q12 #60 tablet RX: Azithromycin [Zithromax 250 mg Tablet] 500 mg PO DAILY #7 tablet Home Medications: RX: Alprazolam [Xanax 0.25 mg Tablet] 0.25 mg PO Q8HP PRN 08/03/19 RX: Duloxetine HCl [Cymbalta] 60 mg PO DAILY 08/03/19 RX: Losartan Potassium [Cozaar 100 mg Tablet] 100 mg PO DAILY 08/03/19 RX: Methocarbamol [Robaxin 750 mg Tablet] 750 mg PO QIDP PRN 08/03/19 RX: Metoprolol Succinate [Toprol XL 100 mg Tablet] 100 mg PO DAILY 08/03/19 RX: Simvastatin [Zocor 20 mg Tablet] 20 mg PO QHS 08/03/19 RX: Furosemide [Lasix 40 mg Tablet] 40 mg PO QAM 10/08/19 RX: Omeprazole 40 mg PO DAILY 10/08/19 RX: Oxycodone HCl [Oxycodone HCl 10 MG Tablet] 10 mg PO Q6HP PRN MDD 5 TABS 10/08/19 Levetiracetam [Keppra 500 mg Tablet] 500 mg PO Q12 #60 tablet 10/11/19 RX: Azithromycin [Zithromax 250 mg Tablet] 500 mg PO DAILY #7 tablet 10/11/19 History of Present Illiness History of Present Illness: CHARLES RICK is a 74 year old male,He presented to the emergency room for evaluation of altered mental status he also had a witnessed seizure in the emergency room, this is new onset for patient. Hospital Course Hospital Course: He Was admitted for the management of metabolic encephalopathy, new onset seizure, right lower lobe pneumonia, malignant neoplasm of prostate gland, macroadenoma pituitary gland. He was treated with IV antibiotic, azithromycin and Rocephin he had altered mental status found to have a new onset witnessed seizure. Patient is on a new medication for the prostate cancer that is associated with seizure . He takes xtandi for the management of the management neoplasm of prostate gland, the medication was held off throughout hospital stay, The chest x-ray demonstrated right lower lobe pneumonia could also be atelectasis, was treated with IV antibiotic for community-acquired pneumonia. Patient regained full alertness and cognitive function, he was started on Keppra for the seizure, hopefully he will not require antiepileptic drug for very long time because the potential etiology of the seizure is the medication that is on for his prostate cancer Physical Exam Vital Signs: Temp Pulse Resp BP Pulse Ox 97.6 F 75 19 158/93 H 96 10/11/19 14:58 10/11/19 14:58 10/11/19 14:58 10/11/19 14:58 10/11/19 14:58 Intake & Output 10/10/19 10/11/19 10/12/19 06:59 06:59 06:59 Intake Total 2338 2620 1770 Balance 2338 2620 1770 Weight 87.1 kg 88.9 kg General appearance: PRESENT: no acute distress Eye exam: PRESENT: PERRLA Respiratory exam: PRESENT: clear to auscultation julia Cardiovascular exam: PRESENT: +S1, +S2 GI/Abdominal exam: PRESENT: soft Neurological exam: PRESENT: alert, CN II-XII grossly intact Results Laboratory Results: WBC 7.8 10^3/uL (4.0-10.5) 10/09/19 03:29 RBC 3.73 10^6/uL (4.35-5.55) L 10/09/19 03:29 Hgb 11.2 g/dL (13.5-17.0) L 10/09/19 03:29 Hct 32.1 % (37.9-51.0) L 10/09/19 03:29 MCV 86 fl (80-97) 10/09/19 03:29 MCH 30.0 pg (27.0-33.4) 10/09/19 03:29 MCHC 34.7 g/dL (32.0-36.0) 10/09/19 03:29 RDW 14.6 % (11.5-14.0) H 10/09/19 03:29 Plt Count 322 10^3/uL (150-450) 10/09/19 03:29 Lymph % (Auto) 29.6 % (13-45) 10/09/19 03:29 Arthur % (Auto) 9.0 % (3-13) 10/09/19 03:29 Eos % (Auto) 1.6 % (0-6) 10/09/19 03:29 Baso % (Auto) 1.2 % (0-2) 10/09/19 03:29 Absolute Neuts (auto) 4.5 10^3/uL (1.7-8.2) 10/09/19 03:29 Absolute Lymphs (auto) 2.3 10^3/uL (0.5-4.7) 10/09/19 03:29 Absolute Monos (auto) 0.7 10^3/uL (0.1-1.4) 10/09/19 03:29 Absolute Eos (auto) 0.1 10^3/uL (0.0-0.6) 10/09/19 03:29 Absolute Basos (auto) 0.1 10^3/uL (0.0-0.2) 10/09/19 03:29 Seg Neutrophils % 58.6 % (42-78) 10/09/19 03:29 VBG pH 7.39 (7.30-7.42) 10/08/19 03:35 VBG pCO2 41.6 mmHg (35-63) 10/08/19 03:35 VBG HCO3 24.5 mmol/L (20-32) 10/08/19 03:35 VBG Base Excess -0.5 mmol/L 10/08/19 03:35 Sodium 137.2 mmol/L (137-145) 10/09/19 03:29 Potassium 3.5 mmol/L (3.6-5.0) L 10/09/19 03:29 Chloride 104 mmol/L (98-107) 10/09/19 03:29 Carbon Dioxide 24 mmol/L (22-30) 10/09/19 03:29 Anion Gap 9 (5-19) 10/09/19 03:29 BUN 6 mg/dL (7-20) L 10/09/19 03:29 Creatinine 0.77 mg/dL (0.52-1.25) 10/09/19 03:29 Est GFR ( Amer) > 60 (>60) 10/09/19 03:29 Est GFR (MDRD) Non-Af > 60 (>60) 10/09/19 03:29 Glucose 110 mg/dL (75-110) 10/09/19 03:29 Calcium 9.0 mg/dL (8.4-10.2) 10/09/19 03:29 Magnesium 2.3 mg/dL (1.6-2.3) 10/08/19 01:40 Total Bilirubin 0.7 mg/dL (0.2-1.3) 10/09/19 03:29 Direct Bilirubin 0.1 mg/dL (0.0-0.4) 10/09/19 03:29 Neonat Total Bilirubin Not Reportable 10/09/19 03:29 Neonat Direct Bilirubin Not Reportable 10/09/19 03:29 Neonat Indirect Bili Not Reportable 10/09/19 03:29 AST 28 U/L (17-59) 10/09/19 03:29 ALT 12 U/L (<50) 10/09/19 03:29 Alkaline Phosphatase 354 U/L (38-126) H 10/09/19 03:29 Troponin I < 0.012 ng/mL 10/08/19 01:40 Total Protein 6.6 g/dL (6.3-8.2) 10/09/19 03:29 Albumin 3.5 g/dL (3.5-5.0) 10/09/19 03:29 Urine Color STRAW 10/08/19 06:20 Urine Appearance CLEAR 10/08/19 06:20 Urine pH 9.0 (5.0-9.0) 10/08/19 06:20 Ur Specific Polo 1.010 10/08/19 06:20 Urine Protein NEGATIVE mg/dL (NEGATIVE) 10/08/19 06:20 Urine Glucose (UA) NEGATIVE mg/dL (NEGATIVE) 10/08/19 06:20 Urine Ketones NEGATIVE mg/dL (NEGATIVE) 10/08/19 06:20 Urine Blood NEGATIVE (NEGATIVE) 10/08/19 06:20 Urine Nitrite NEGATIVE (NEGATIVE) 10/08/19 06:20 Urine Bilirubin NEGATIVE (NEGATIVE) 10/08/19 06:20 Urine Urobilinogen NEGATIVE mg/dL (<2.0) 10/08/19 06:20 Ur Leukocyte Esterase NEGATIVE (NEGATIVE) 10/08/19 06:20 Urine WBC (Auto) 1 /HPF 10/08/19 06:20 Urine RBC (Auto) 2 /HPF 10/08/19 06:20 Urine Mucus (Auto) RARE /LPF 10/08/19 06:20 Urine Ascorbic Acid NEGATIVE (NEGATIVE) 10/08/19 06:20 Serum Alcohol < 10 mg/dL (NONE DETECTED) 10/08/19 01:40 10/08/19 01:40 Troponin I < 0.012 Impressions: Chest X-Ray 10/08/19 02:15 IMPRESSION: Mild left basilar opacity consistent with atelectasis or early pneumonia. Head CT 10/08/19 02:15 IMPRESSION: 1. 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 2. Atrophy and chronic small vessel ischemic changes with otherwise no acute intracranial abnormality. Stroke Is this a Stroke Patient?: No Acute Heart Failure - Is this a Heart Failure Patient?: No
== END 2019-10-11 16:45 | disposition home or self-care (01) | DRG 100 ==
LOC: ER 01:05 → EH 05:55 → 4N 07:18
PROVIDERS: ADMIT Internal Medicine; ATTEND Internal Medicine
DX: R56.9 Unspecified convulsions (principal); J18.1 Lobar pneumonia, unspecified organism; G93.41 Metabolic encephalopathy; C79.51 Secondary malignant neoplasm of bone; D35.2 Benign neoplasm of pituitary gland; C61 Malignant neoplasm of prostate; T45.1X5A Adverse effect of antineoplastic and immunosuppressive drugs, initial encounter; I10 Essential (primary) hypertension; K21.9 Gastro-esophageal reflux disease without esophagitis; F32.9 Major depressive disorder, single episode, unspecified; Z79.899 Other long term (current) drug therapy; Z88.3 Allergy status to other anti-infective agents
CPT/HCPCS: 36415; 70450; 71045; 80053; 80307; 81001; 82803; 83735; 84484; 85025; 87040; 93005; 93010; 96365; 96375; 99285; J0456; J0696; J1650; J1953; J2060; J3490; J7042; J7060